=== PATIENT | male | born 1965 | race African-American/Black ===

== ENCOUNTER 2018-05-10 07:55 | Inpatient (IN) ==
[2018-05-10] MEDS ORDERED: ASPIRIN PO ONE (08:02)
[2018-05-10] MEDS ORDERED: ASPIRIN PR ONE (08:02)
[2018-05-10] MEDS ORDERED: ZOFRAN IV ONE (08:11)
[2018-05-10] MEDS ORDERED: ZOFRAN ONE (08:11)
--- NOTE | 2018-05-10 08:16 | PROVIDER DOCUMENTATION ---
HPI-Chest Pain - General Chief Complaint: Shortness of Breath Stated Complaint: dyspnea Time Seen by Provider: 05/10/18 08:02 Source: patient Allergies/Adverse Reactions: Patient Allergies Allergy/AdvReac Type Severity Reaction Status Date / Time No Known Allergies Allergy Verified 04/03/18 10:32 Home Medications: Home Medication List Medication Instructions Recorded Confirmed Last Taken Type Amlodipine Besylate [Norvasc] 5 mg PO DAILY #30 tab 03/11/18 05/10/18 Unknown Rx Diclofenac Sodium 1 tab PO DAILY 04/03/18 05/10/18 Unknown History Hydrocodone Bit/Acetaminophen 10 mg PO BID PRN 04/03/18 05/10/18 Unknown History [Hydrocodon-Acetaminophn 10-325] Lisinopril/Hydrochlorothiazide 20 mg PO DAILY 04/03/18 05/10/18 Unknown History [Lisinopril-Hctz 20-12.5 mg Tab] - History of Present Illness-CP Location: reports: substernal Chest Pain Radiation: reports: no radiation Quality of Pain: reports: tightness Onset/Duration: last night Timing: still present Context/Activities at Onset: reports: other (patient belived he ate bad food that made him sick) Associated Symptoms: reports: shortness of breath, weakness Similar Symptoms Previously?: No Recently Seen Here or By Another Healthcare Provider: No Review of Systems - Adult - REVIEW OF SYSTEMS - ADULT Constitutional: reports: see HPI Eyes: reports: no symptoms reported Ears, Nose, Mouth & Throat: reports: no symptoms reported Cardiovascular: reports: see HPI Respiratory: reports: shortness of breath Gastrointestinal: reports: nausea, vomiting Genitourinary: reports: no symptoms reported Musculoskeletal: reports: no symptoms reported Integumentary: reports: no symptoms reported Neurological: reports: no symptoms reported Psychiatric: reports: no symptoms reported Endocrine: reports: no symptoms reported Hematologic/Lymphatic: reports: no symptoms reported Allergic/Immunologic: reports: see HPI Past History - Adult - PAST MEDICAL HISTORY-ADULT Review of Records: reports: Nursing Assessment Review, Medications Reviewed Major Childhood Illnesses: reports: denies history Cardiovascular: reports: HTN Respiratory: reports: denies history Gastrointestinal: reports: hepatitis, liver disease Obstetrical/Gynecological: reports: denies history Genitourinary: reports: denies history Musculoskeletal: reports: denies history Neurological: reports: denies history Endocrine/Immune: reports: denies history Other Conditions: reports: denies history - PRIOR SURGERIES/PROCEDURES Surgical/Procedure History: reports: none - IMMUNIZATION STATUS Childhood Immunizations: See Nurse Assessment Flu Vaccine: See Nurse Assessment - FAMILY HISTORY Family History: reviewed, not pertinent Physical Exam-General - PHYSICAL EXAM-ADULT Initial Vital Signs Reviewed: Yes - CONSTITUTIONAL General Appearance: moderate distress - EYES Eyes: PERRL/EOMI - HEAD, EARS, NOSE, MOUTH & THROAT HENMT: normocephalic/atraumatic - NECK Neck: non-tender - RESPIRATORY Respiratory: lungs clear - CARDIOVASCULAR Cardiovascular: no edema, tachycardia - GASTROINTESTINAL (ABDOMEN) Abdominal Exam: non tender - LYMPHATIC Lymphatic: no adenopathy - MUSCULOSKELETAL Back Exam: no CVA tenderness, no vertebral tenderness Extremity: non-tender - SKIN Integumentary: warm/dry - NEUROLOGIC 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 - PSYCHIATRIC Psych/Mental Status: normal mood/affect Progress - PLAN OF CARE/RESULTS Result Diagrams: 05/10/18 08:15 05/10/18 08:15 - EKG 1 Time of EKG reading by physician:: 08:05 EKG Read and Signed by:: Marion Lowry EKG Interpretation (*Must complete 3 of following elements*): Abnormal Rate: 80 Rhythm: sinus rhythm with marked sinus arrhythmia [place]: normal QRS: normal MO Interval: normal ST Wave: non-specific ST changes Comments: abnormal ECG, prolonged QTC 2 Time of EKG reading by physician:: 08:17 EKG Read and Signed by:: Marion Lowry EKG Interpretation (*Must complete 3 of following elements*): Abnormal Rate: 66 Rhythm: normal sinus rhythm [place]: normal QRS: LVH MO Interval: normal ST Wave: normal Comments: prolonged QT 3 Time of EKG reading by physician:: 11:12 EKG Read and Signed by:: Marion Lowry EKG Interpretation (*Must complete 3 of following elements*): Abnormal Rate: 61 Rhythm: normal sinus rhythm QRS: LVH MO Interval: normal Comments: ST & T wave abnormality, consider anterior ischemia; prolonged QT - ULTRASOUND (By Radiology) 1 Impression: See EMR Report (US GB < RUQ (LIMITED) - 05/10/2018 INDICATION: Abd pain, Cholelithiasis TECHNIQUE: COMPARISON: CT from earlier today FINDINGS : There are several gallstones in the gallbladder. No gallbladder distention or wall thickening. There is significant fatty change of the liver. No liver masses. Common bile duct measures 6 mm. The pancreas and right kidney are normal. Aorta, IVC, and main portal vein are patent. IMPRESSION: Cholelithiasis. Severe hepatic steatosis.) Departure - Departure Date of Disposition Decision: 05/10/18 Time of Disposition Decision: 15:00 DIAGNOSIS: Cholelithiasis Disposition: ADMITTED INPATIENT 09 Certified Medical Emergency: Emergent Condition: Stable - Critical Care Note This patient required my direct & personal management of CC.: No Attestation - Physician/ KAIN Attestation Patient care was provided by Advanced Practice Provider:: No The physician spent face to face time with patient:: Yes Advanced Practice Provider documentation review:: Supervising physician onsite and consulted in the evaluation and care of this patient. The physician did have a face to face encounter with the patient.
[2018-05-10 08:24] LABS: BASO# 0.01 X1000 (0.0-0.2); BASO% 0.3 % (0.0-0.8); EOS# 0.01 X1000 (0.0-0.7); EOS% 0.3 % (0.0-10.0); HEMATOCRIT 42.6 % (42.0-52.0); IMM GRAN# 0.01 X1000 (0.0-0.04); IMM GRAN% 0.3 % (0.0-0.5); LYMPH# 1.49 X1000 (1.2-3.4); LYMPH% 41.9 % (20.5-51.1); MCH 32.9 PG (27-31); MCHC 35.2 g/dL (33-37); MCV 93.4 FL (81-99); MONO# 0.38 X1000 (0.11-0.59); MONO% 10.7 % (1.7-9.3); MPV 10.1 FL (7.4-10.4); NEUT# 1.66 X1000 (1.4-6.5); NEUT% 46.5 % (42.2-75.2); PLT 167 X1000 (130-400); RBC 4.56 XMIL (4.7-6.1); RDW 13.1 % (11.5-14.5); WBC 3.56 X1000 (4.8-10.8)
[2018-05-10 08:40] LABS: INR 1.02; PROTIME 13.9 Seconds (11.0-16.0)
[2018-05-10 08:41] LABS: PTT 27.8 Seconds (22.3-41.8)
--- NOTE | 2018-05-10 08:49 | Diag Imaging Result Doc PS360 ---
EXAM: CHEST-2 VIEWS HISTORY: dyspnea TECHNIQUE: Chest two views COMPARISON: 03/24/2018 FINDINGS: The lungs are well expanded. The heart is not enlarged. The vessels are not distended. There are no infiltrates. No pleural effusions. IMPRESSION: No acute abnormality. Electronically signed by Shaan Metz 05/10/2018 8:46 AM
[2018-05-10 08:55] LABS: AGAP 20; ALBUMIN 4.3 g/dL (3.5-5.0); ALKALINE PHOSPHATASE 123 U/L (32-122); BUN 7 mg/dL (8-22); CHLORIDE 96 mmol/L (98-107); COSMO 280; CREATININE 0.8 mg/dL (0.7-1.2); ESTIMATED GFR > 60; GLUCOSE 152 mg/dL (70-104); GOT 223 U/L (10-34); GPT 126 U/L (10-44); POTASSIUM 3.9 mmol/L (3.5-5.1); SODIUM 140 mmol/L (136-145); TCO2 24 mmol/L (25-35); TOTAL PROTEIN 9.2 g/dL (6.3-8.3)
[2018-05-10] MEDS ORDERED: REGLAN IV ONE (08:59)
[2018-05-10] MEDS ORDERED: MORPHINE IV ONE (08:59)
[2018-05-10 09:00] LABS: CK PROFILE 2841 U/L (24-204)
[2018-05-10] MEDS ORDERED: PROTONIX IV ONE (09:00)
[2018-05-10] MEDS ORDERED: SODIUM CHLORIDE 0.9% INJ ONE (09:00)
[2018-05-10 09:22] LABS: CK INDEX 0.6 (0.0-2.5); CK-MB 16.72 ng/mL (0.0-5.0)
--- NOTE | 2018-05-10 10:42 | Diag Imaging Result Doc PS360 ---
EXAM: CT ABDOMEN/PELVIS W/O CONTRAST HISTORY: vomiting, bialteral flank pain TECHNIQUE: CT abdomen and pelvis without contrast COMPARISON: 03/13/2018 FINDINGS: There are several calcified stones within the gallbladder. No adjacent inflammation. There is fatty infiltration of the liver. No focal hepatic abnormality identified on this noncontrasted study. Normal spleen, pancreas, and adrenal glands. No renal stones. No hydronephrosis. Prominent atherosclerosis. No aortic aneurysm. No bowel obstruction. No ascites. The urinary bladder is moderately distended and is normal. The prostate measures 4.9 cm in transverse diameter. There are prominent degenerative changes in the lower lumbar spine. IMPRESSION: No interval change from the prior recent study. This exam was performed using automated exposure control, adjustment of mA or kV according to patient size, and/or use of iterative reconstruction technique. Electronically signed by Shaan Metz 05/10/2018 10:40 AM
--- NOTE | 2018-05-10 10:49 | EKG Report ---
Test Performed on : 05/10/2018 08:17:54 AM Test Reason : dyspnea Blood Pressure : / mmHG Vent. Rate : 066 BPM Atrial Rate : 066 BPM P-R Int : 156 ms QRS Dur : 092 ms QT Int : 464 ms P-R-T Axes : 051 000 009 degrees QTc Int : 486 ms Normal sinus rhythm. Minimal voltage criteria for LVH, may be normal variant Prolonged QT Abnormal ECG When compared with ECG of 10-MAY-2018 08:05, (Unconfirmed) No significant change was found Unconfirmed Result
[2018-05-10] MEDS ORDERED: ASPIRIN ONE (10:58)
[2018-05-10] MEDS: NS 1,000 ML IV ONE ×2 (11:00→12:55)
[2018-05-10] MEDS ORDERED: APRESOLINE IV PRN (11:41)
[2018-05-10] MEDS ORDERED: ZOFRAN IV PRN (11:41)
[2018-05-10 11:46] LABS: CK INDEX 0.6 (0.0-2.5); CK-MB 12.61 ng/mL (0.0-5.0)
[2018-05-10] MEDS ORDERED: KEFZOL 2 GM/D5W 2 GM/50 ML IVPB IV ONE (12:15)
--- NOTE | 2018-05-10 13:05 | Diag Imaging Result Doc PS360 ---
US GB < RUQ (LIMITED) - 05/10/2018 INDICATION: Abd pain, Cholelithiasis TECHNIQUE: COMPARISON: CT from earlier today FINDINGS: There are several gallstones in the gallbladder. No gallbladder distention or wall thickening. There is significant fatty change of the liver. No liver masses. Common bile duct measures 6 mm. The pancreas and right kidney are normal. Aorta, IVC, and main portal vein are patent. IMPRESSION: Cholelithiasis. Severe hepatic steatosis. Electronically signed by Mitch Swanson 05/10/2018 1:02 PM
--- NOTE | 2018-05-10 15:22 | EKG Report ---
Test Performed on : 05/10/2018 11:12:12 AM Test Reason : #2 Blood Pressure : / mmHG Vent. Rate : 061 BPM Atrial Rate : 061 BPM P-R Int : 148 ms QRS Dur : 090 ms QT Int : 500 ms P-R-T Axes : 034 -11 -13 degrees QTc Int : 503 ms Normal sinus rhythm. Minimal voltage criteria for LVH, may be normal variant ST & T wave abnormality, consider anterior ischemia Prolonged QT Abnormal ECG When compared with ECG of 10-MAY-2018 08:17, (Unconfirmed) ST now depressed in Inferior leads Unconfirmed Result
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
[2018-05-10] MEDS: NORCO-10 PO PRN (18:06)
[2018-05-10] MEDS: D5 1/2 NS + KCL 20 MEQ 1,000 ML IV SCH (18:07)
[2018-05-10] MEDS: ZOFRAN IV PRN (21:36)
[2018-05-11] MEDS: D5 1/2 NS + KCL 20 MEQ 1,000 ML IV SCH ×2 (08:31→20:12)
[2018-05-11] MEDS: NORCO-10 PO PRN ×4 (08:54→20:12)
[2018-05-11 09:41] LABS: UR AMPHETAMINES QUAL NONE DETECTED (NONE DETECT); UR BARBITUATES QUAL NONE DETECTED (NONE DETECT); UR BENZODIAZEPIN QUAL NONE DETECTED (NONE DETECT); UR CANNABINOIDS QUAL PRESUMPTIVE POSITIVE (NONE DETECT); UR COCAINE QUAL PRESUMPTIVE POSITIVE (NONE DETECT); UR METHADONE QUAL NONE DETECTED (NONE DETECT); UR OPIATES QUAL PRESUMPTIVE POSITIVE (NONE DETECT); UR OXYCODONE QUAL NONE DETECTED (NONE DETECT); UR PCP QUAL NONE DETECTED (NONE DETECT)
[2018-05-11] MEDS ORDERED: SODIUM CHLORIDE 0.9% ONE (10:45)
[2018-05-11] MEDS ORDERED: DIPRIVAN 1% ONE (10:45)
[2018-05-11] MEDS ORDERED: SENSORCAINE 0.5%-EPI 1:200,000 ONE (10:45)
[2018-05-11] MEDS ORDERED: LR 1,000 ML ONE (10:45)
[2018-05-11] MEDS ORDERED: XYLOCAINE-MPF 2% ONE (10:45)
[2018-05-11] MEDS ORDERED: VERSED ONE (10:46)
[2018-05-11] MEDS ORDERED: SODIUM CHLORIDE 0.9% 10 ML ONE (10:47)
[2018-05-11] MEDS ORDERED: NORCURON ONE (10:47)
[2018-05-11] MEDS ORDERED: QUELICIN (DOSE) ONE (10:47)
[2018-05-11] MEDS ORDERED: FENTANYL ONE (10:49)
[2018-05-11] MEDS ORDERED: KEFZOL 1 GM/D5W 1 GM/50 ML IVPB ONE (11:12)
[2018-05-11] MEDS ORDERED: DECADRON ONE (11:29)
[2018-05-11] MEDS ORDERED: ROBINUL ONE ×2 (11:29→11:51)
[2018-05-11] MEDS ORDERED: ZOFRAN ONE (11:29)
[2018-05-11] MEDS ORDERED: NEOSTIGMINE ONE (11:51)
[2018-05-11] MEDS: DILAUDID ONE ×2 (12:22→12:25)
--- NOTE | 2018-05-11 12:34 | Diag Imaging Result Doc PS360 ---
OPERATIVE CHOLANGIOGRAM - 05/11/2018 INDICATION: CHOLECYSTITIS TECHNIQUE: The exam was performed by the patient's surgeon. One image was submitted. Total fluoroscopy time was 10 seconds. COMPARISON: None FINDINGS: Contrast was infused into the cystic duct. This outlines a normal common bile duct. There is good passage of contrast into the duodenum. No strictures or filling defect. IMPRESSION: No complication. Electronically signed by Mitch Swanson 05/11/2018 12:32 PM
--- NOTE | 2018-05-11 12:38 | OPERATIVE NOTE ---
PROCEDURE DATE: 05/11/2018 PREOPERATIVE DIAGNOSIS: Chronic cholecystitis with cholelithiasis. POSTOPERATIVE DIAGNOSES: 1. Chronic cholecystitis with cholelithiasis. 2. Nodular liver. PRINCIPAL PROCEDURES PERFORMED: 1. Laparoscopic cholecystectomy with intraoperative cholangiogram. 2. Core needle biopsy of right lobe of the liver. SURGEON: Saumya Lane MD. ANESTHESIA: General in addition to local anesthetic. ESTIMATED BLOOD LOSS: 25 mL. DRAINS: None. INDICATIONS: Mr. Harvey Vazquez is a 52-year-old, black male who has a history of alcohol abuse and drug abuse. He presented to our emergency department with nausea. Part of his evaluation was a CT scan of his abdomen and pelvis which suggested cholelithiasis. It was felt that his gallstones could be the cause of his symptoms. He was transferred from [facility] Emergency Department to [facility] for further care. FINDINGS: His liver was nodular and he may have early cirrhosis. We did a core needle biopsy of the right lobe of the liver. His gallbladder was floppy, chronically inflamed, and had at least several small black stones within it. We did do an intraoperative cholangiogram which showed free flow of the dye into the duodenum without evidence of extrahepatic stones or obstruction. There was no abnormal dilatation of the extrahepatic bile ducts. We noted no other intra-abdominal pathology and we felt we did the operation safely. DESCRIPTION OF PROCEDURE: The patient was brought to the operating room, placed supine, received general anesthesia, and was intubated. His abdomen was prepped and draped within a sterile field. We made a small incision below the umbilicus using a 15 blade scalpel. A Veress needle was introduced through this incision into the abdomen. Pneumoperitoneum was established. The Veress needle was removed and we placed an 11 mm trocar through this incision into the abdomen. The camera was placed through this port and the abdomen was explored for injury. There was none. Three other trocars were placed along the right costal margin under direct vision of the camera. We placed an 11 mm trocar just to the right of the midline and two 5 mm trocars in our midclavicular and anterior axillary lines. Through our most lateral port, the gallbladder was grasped and retracted superiorly, along with the right lobe of the liver. Another grasper was used to grab the body of the gallbladder and the triangle of [place] was bluntly dissected. We identified the cystic artery initially. We placed a clip distally and two proximally. It was divided using hook scissors. The cystic duct was dissected along its length. I placed a clip at the cystic duct-gallbladder junction. I made a small incision in the cystic duct using hook scissors and a Taut intraoperative cholangiogram catheter was used to perform the cholangiogram with the findings as above. Once the cholangiogram was completed, I removed the catheter and two clips were placed proximally on the cystic duct. We divided the cystic duct between clips using hook scissors. The spatula cautery was used to remove the gallbladder from the liver bed. There was no spillage of stones or bile during this procedure. I removed the gallbladder through our umbilical incision. I placed the trocar back through this incision and the area of operation was thoroughly inspected, irrigated, and the irrigation was removed with suction. There was no evidence of ongoing bleeding or bile leak, and no drains were left. I then made a small incision in the right upper quadrant. I placed a core needle biopsy device into the abdomen under direct vision of the camera and took a core needle biopsy of the right lobe of the liver. The spatula cautery was used to control bleeding from our biopsy site. All trocars were removed under direct vision of the camera. The pneumoperitoneum was allowed to dissipate. I used a [id number] 2-0 Vicryl stitch to reapproximate the fascia below the umbilicus. All skin was closed with 4-0 Monocryl subcuticular stitches. Steri-Strips were applied. He tolerated the procedure well with plans for him to go the recovery room and then be readmitted to the floor. cc: Saumya Lane MD
[2018-05-11] MEDS ORDERED: APRESOLINE ONE (12:46)
[2018-05-11] MEDS: NORVASC PO SCH (13:55)
[2018-05-11] MEDS: PRINIVIL PO SCH (13:56)
[2018-05-12] MEDS: ZOFRAN IV PRN (00:53)
[2018-05-12] MEDS: NORCO-10 PO PRN ×2 (02:47→08:47)
[2018-05-12] MEDS: D5 1/2 NS + KCL 20 MEQ 1,000 ML IV SCH (08:46)
[2018-05-12] MEDS: PRINIVIL PO SCH (08:47)
[2018-05-12] MEDS: NORVASC PO SCH (08:47)
[2018-05-12 11:34] VITALS: BP 167/87
--- NOTE | 2018-05-12 22:22 | DISCHARGE SUMMARY ---
ADMISSION DATE: 05/10/2018 DISCHARGE DATE: 05/12/2018 ADMITTING DIAGNOSES: 1. Nausea and vomiting. 2. Gallstones. 3. Fatty liver. DISCHARGE DIAGNOSES: 1. Nausea and vomiting. 2. Gallstones. 3. Fatty liver. PRINCIPAL PROCEDURE: 1. Laparoscopic cholecystectomy with intraoperative cholangiogram. 2. Core needle biopsy of right lobe of the liver, 05/11/2018. DISCHARGE DIET: Regular. DISCHARGE DISPOSITION: He will return to our outpatient office in 7 to 10 days. DISCHARGE DISABILITY: Full. DISCHARGE MEDICATION: He was given [place] 10 mg, #10 of these, no refill. HOSPITAL COURSE: Mr. Harvey Vazquez is a 52-year-old black male who has a history of alcohol abuse and drug abuse. He has also been in shelter. He presented to [facility] with symptoms of nausea and was brought to [facility] Emergency Department, where he was evaluated. Part of his evaluation was a CT scan of his abdomen and pelvis, which suggested gallstones and a fatty liver. His gallstones were confirmed by abdominal ultrasound. He was transferred from [facility] to [facility] so that I could evaluate him for surgery. On 05/11/2018, he underwent a laparoscopic cholecystectomy with intraoperative cholangiogram. He did have stones within his gallbladder. His cholangiogram was normal. I thought he had early cirrhosis of his liver and therefore, did a core needle biopsy of the right lobe of the liver to see what his pathology showed. Otherwise, intraabdominally he was within normal limits. On postoperative day 1, he was tolerating a diet. All his trocar sites were intact. His abdomen was soft. He was independent in his room, and we felt it was safe to discharge him home under the care of his family with follow-up in my outpatient office in 7 to 10 days. cc: MD Juan Weaver MD
== END 2018-05-12 12:42 | disposition home or self-care (01) | DRG 419 ==
LOC: P.ED 07:55 → EDIPHOLD 12:27 → 4N 15:59
PROVIDERS: ADMIT Surgery; ATTEND Surgery
CPT/HCPCS: 71020; 71046; 74176; 74300; 76705; 80053; 80101; 80301; 80307; 80320; 80324; 80345; 80346; 80353; 80358; 80361; 80365; 82055; 82550; 82553; 83605; 83690; 83880; 83992; 84484; 85025; 85610; 85730; 88304; 88307; 88313; 93005; 94761; 94799; 96361; 96365; 96366; 96375; 96376; 99285; A9270; C1751; C9113; G0431; G0434; G0479; G0480; G6040; J0330; J0360; J0690; J1100; J1170; J2250; J2270; J2405; J2765; J3010; J3480; J7030; J7120; Q9966; Q9967; S0164

== ENCOUNTER 2019-02-26 21:07 | Inpatient (IN) ==
[2019-02-26] MEDS ORDERED: ASPIRIN PO ONE (21:18)
--- NOTE | 2019-02-26 21:54 | Diag Imaging Result Doc PS360 ---
CHEST-2 VIEWS - 02/26/2019 INDICATION: CP COMPARISON: 05/10/2018 FINDINGS: The lungs are normally expanded and clear. Heart size and mediastinal contours are normal. No pneumothorax or pleural effusion. IMPRESSION: Negative exam. Electronically signed by Mitch Swanson 02/26/2019 9:52 PM
--- NOTE | 2019-02-26 21:57 | EKG Report ---
Test Performed on : 02/26/2019 9:22:17 PM Test Reason : CP Blood Pressure : / mmHG Vent. Rate : 101 BPM Atrial Rate : 101 BPM P-R Int : 154 ms QRS Dur : 090 ms QT Int : 340 ms P-R-T Axes : 059 007 007 degrees QTc Int : 440 ms Sinus tachycardia. Possible Left atrial enlargement Borderline ECG When compared with ECG of 08-JUN-2018 08:06, No significant change was found Unconfirmed Result
[2019-02-26 22:05] LABS: BASO# 0.04 X1000 (0.0-0.2); BASO% 0.8 % (0.0-0.8); EOS# 0.29 X1000 (0.0-0.7); EOS% 5.6 % (0.0-10.0); HEMATOCRIT 41.8 % (42.0-52.0); HEMOGLOBIN 14.4 g/dL (14.0-18.0); IMM GRAN# 0.02 X1000 (0.0-0.04); IMM GRAN% 0.4 % (0.0-0.5); LYMPH# 2.74 X1000 (1.2-3.4); LYMPH% 53.2 % (20.5-51.1); MCH 31.4 PG (27-31); MCHC 34.4 g/dL (33-37); MCV 91.3 FL (81-99); MONO# 0.56 X1000 (0.11-0.59); MONO% 10.9 % (1.7-9.3); MPV 9.8 FL (7.4-10.4); NEUT% 29.1 % (42.2-75.2); PLT 213 X1000 (130-400); RBC 4.58 XMIL (4.7-6.1); RDW 12.5 % (11.5-14.5); WBC 5.15 X1000 (4.8-10.8)
[2019-02-26 22:09] LABS: INFLUENZA A NEGATIVE (NEGATIVE); INFLUENZA B NEGATIVE (NEGATIVE)
[2019-02-26 22:12] LABS: UR AMPHETAMINES QUAL PRESUMPTIVE POSITIVE (NONE DETECT); UR BARBITUATES QUAL NONE DETECTED (NONE DETECT); UR BENZODIAZEPIN QUAL NONE DETECTED (NONE DETECT); UR CANNABINOIDS QUAL PRESUMPTIVE POSITIVE (NONE DETECT); UR COCAINE QUAL NONE DETECTED (NONE DETECT); UR METHADONE QUAL NONE DETECTED (NONE DETECT); UR METHAMPHETAMINE QUAL NONE DETECTED (NONE DETECT); UR OPIATES QUAL NONE DETECTED (NONE DETECT); UR OXYCODONE QUAL NONE DETECTED (NONE DETECT); UR PCP QUAL NONE DETECTED (NONE DETECT); UR PROPOXYPHENE QUAL NONE DETECTED (NONE DETECT); UR TCA QUAL NONE DETECTED (NONE DETECT)
[2019-02-26 22:20] LABS: AGAP 15; ALBUMIN 4.1 g/dL (3.5-5.0); ALKALINE PHOSPHATASE 101 U/L (32-122); BUN 17 mg/dL (8-22); CALCIUM 9.9 mg/dL (8.8-10.2); CHLORIDE 95 mmol/L (98-107); COSMO 267; CREATININE 1.1 mg/dL (0.7-1.2); ESTIMATED GFR > 60; GLUCOSE 147 mg/dL (70-104); GOT 102 U/L (10-34); GPT 66 U/L (10-44); POTASSIUM 4.1 mmol/L (3.5-5.1); SODIUM 131 mmol/L (136-145); TCO2 21 mmol/L (25-35); TOTAL PROTEIN 8.1 g/dL (6.3-8.3)
[2019-02-26 22:43] LABS: INR 0.98; PROTIME 13.5 Seconds (11.0-16.0)
[2019-02-26 22:44] LABS: PTT 30.3 Seconds (22.3-41.8)
[2019-02-26] MEDS ORDERED: NS 1,000 ML IV ONE (23:56)
[2019-02-26] MEDS ORDERED: ZOFRAN IV PRN (23:56)
[2019-02-26] MEDS ORDERED: MORPHINE IV PRN (23:56)
--- NOTE | 2019-02-26 23:56 | PROVIDER DOCUMENTATION ---
This chart was entered by Vashti Harper Scribe, acting as scribe for Nan Borden CRNP. HPI-Chest Pain - General Chief Complaint: Chest Pain Stated Complaint: SOB Time Seen by Provider: 02/26/19 21:17 Source: patient Allergies/Adverse Reactions: Patient Allergies Allergy/AdvReac Type Severity Reaction Status Date / Time No Known Allergies Allergy Verified 07/07/18 12:13 Home Medications: Home Medication List Medication Instructions Recorded Confirmed Last Taken Type Amlodipine Besylate [Norvasc] 5 mg PO DAILY #30 tab 03/11/18 06/08/18 Unknown Rx Diclofenac Sodium 1 tab PO DAILY 04/03/18 05/10/18 Unknown History Lisinopril/Hydrochlorothiazide 20 mg PO DAILY 04/03/18 06/08/18 06/07/18 History [Lisinopril-Hctz 20-12.5 mg Tab] Hydrocodone/Acetaminophen [[place] 1 each PO Q6H PRN #10 tablet 05/12/18 06/08/18 06/06/18 Rx 10-325 Tablet] Methocarbamol 1 tab PO BID 06/08/18 06/08/18 Unknown History Promethazine [Phenergan] 25 mg PO Q6H PRN PRN #4 tab 06/08/18 Unknown Rx Amlodipine [Norvasc] 5 mg PO DAILY #30 tab 06/10/18 Unknown Rx Ketorolac [Toradol] 10 mg PO Q6H PRN PRN #10 tab 06/10/18 Unknown Rx Metoclopramide [Reglan] 10 mg PO Q6HR PRN #20 tab 06/10/18 Unknown Rx Doxycycline 100 mg PO BID #14 tab 07/07/18 Unknown Rx Ondansetron Odt [Zofran 4 mg Odt] 4 mg PO Q6H PRN PRN #30 tab 07/07/18 Unknown Rx - History of Present Illness-CP Nature of Presenting Problem: pt is a 53yom c/o sore throat, productive cough w/white sputum x 4 days. pt also c/o sharp cp radiating across chest to rt and left sided neck pain. THE NECK PAIN IS WORSE WITH MOVEMENT. pt has no edema, no sob, no fever or chills. pt has hx of drug abuse. pt drinks 2-3 beer/day. HE REPORTS HE TOOK AN ADDERALL TODAY FROM SOMEONE AT HOME. Location: reports: other (left sided) Chest Pain Radiation: reports: other (across chest to rt) Quality of Pain: reports: sharp Severity in ED: mild Onset/Duration: 4 days ago Timing: still present Context/Activities at Onset: reports: none Associated Symptoms: reports: denies symptoms Nitro Today/Relief: no nitro taken today Aspirin Treatment Today: 325 mg x 1, provided by ED Prior Chest Pain/Cardiac Workup: reports: cardiolite scan (> 10 YEARS AGO AT ) Similar Symptoms Previously?: Yes Recently Seen Here or By Another Healthcare Provider: No Review of Systems - Adult - REVIEW OF SYSTEMS - ADULT Constitutional: reports: no symptoms reported. denies: chills, fever, night sweats Eyes: reports: no symptoms reported Ears, Nose, Mouth & Throat: reports: see HPI, throat pain. denies: mouth swelling, hoarseness, throat swelling Cardiovascular: reports: see HPI, chest pain. denies: edema, orthopnea, palpitations Respiratory: reports: see HPI, cough, excessive sputum production. denies: pleurisy, shortness of breath, wheezing Gastrointestinal: reports: no symptoms reported Genitourinary: reports: no symptoms reported Musculoskeletal: reports: no symptoms reported Integumentary: reports: no symptoms reported Neurological: reports: no symptoms reported Psychiatric: reports: no symptoms reported Endocrine: reports: no symptoms reported Hematologic/Lymphatic: reports: no symptoms reported Allergic/Immunologic: reports: no symptoms reported All Other Systems: Reviewed and Negative Past History - Adult - PAST MEDICAL HISTORY-ADULT Review of Records: reports: Nursing Assessment Review, Medications Reviewed, Social history reviewed & non-contributory. Major Childhood Illnesses: reports: denies history Cardiovascular: reports: HTN, hyperlipidemia Respiratory: reports: denies history Gastrointestinal: reports: hepatitis, liver disease Obstetrical/Gynecological: reports: denies history Genitourinary: reports: denies history Musculoskeletal: reports: denies history Neurological: reports: denies history Psychiatric: reports: denies history Endocrine/Immune: reports: Diabetes (pre) Other Conditions: reports: denies history - PRIOR SURGERIES/PROCEDURES Surgical/Procedure History: reports: cholecystectomy - IMMUNIZATION STATUS Childhood Immunizations: See Nurse Assessment Flu Vaccine: See Nurse Assessment - FAMILY HISTORY Family History: reviewed, not pertinent - SOCIAL HISTORY Smoking: cigarettes, less than 1 pack/day Provider spent 3-5 mins advising pt. on dangers of tobacco.: Discussed manners to quit use, and f/u contacts for add'l counseling. Substance Use: none presently/history of abuse, alcohol, marijuana Alcohol Use Frequency: every day Number of drinks per typical drinking period:: 3-4 drinks Physical Exam-General - PHYSICAL EXAM-ADULT Initial Vital Signs Reviewed: Yes - CONSTITUTIONAL General Appearance: appears well, alert, no apparent distress - EYES Eyes: PERRL/EOMI, pink conjunctivae - HEAD, EARS, NOSE, MOUTH & THROAT HENMT: normocephalic/atraumatic, moist mucous membranes, normal ENT inspection - NECK Neck: non-tender, full range of motion, supple, normal inspection - RESPIRATORY Respiratory: chest non-tender, lungs clear, normal breath sounds, no pleuratic chest pain, no respiratory distress, no accessory muscle use. negative: pleural rub, retractions, splinting - CARDIOVASCULAR Cardiovascular: normal peripheral pulses, regular rate, rhythm, no edema, no gallop, no JVD, no murmur. negative: friction rub, irregularly irregular, PMI displaced laterally - CHEST (BREASTS) Chest/Breast: no tenderness - GASTROINTESTINAL (ABDOMEN) Abdominal Exam: normal bowel sounds, non tender, soft - LYMPHATIC Lymphatic: no adenopathy - MUSCULOSKELETAL Back Exam: normal inspection, no CVA tenderness, no vertebral tenderness Extremity: normal range of motion, non-tender, normal inspection Peripheral Pulses: radial (R): 2+, radial (L): 2+ - SKIN Integumentary: normal color, normal turgor, warm/dry - NEUROLOGIC Neurologic: grossly normal, no motor/sensory deficits - PSYCHIATRIC Psych/Mental Status: normal mood/affect, normal thought content, normal thought process, oriented x 3 - HEART Score HEART Score: History: Slightly Suspicious HEART Score: ECG: Normal HEART Score: Age: 45-65 Years HEART Score: Risk Factors for Atherosclerotic Disease: > or = 3 Risk Factors or History of Atherosclerotic Disease HEART Score: Troponin: < or = Normal Limit Total HEART Score:: 3 Progress - PLAN OF CARE/RESULTS Progress/Plan/Lab Results: Vital Signs - 8 hr 02/26/19 21:10 Temperature 99.1 F Pulse Rate 102 H Respiratory Rate 18 Blood Pressure 177/96 O2 Sat by Pulse Oximetry 99 Laboratory Results - last 24 hr 1102/26/19 02/26/19 21:37 21:37 21:43 WBC RBC Hgb Hct MCV MCH MCHC RDW Std Deviation Plt Count MPV Immature Gran % (Auto) Neut % (Auto) Lymph % (Auto) [place] % (Auto) Eos % (Auto) Baso % (Auto) Immature Gran # (Auto) Neut # (Auto) Lymph # (Auto) [place] # (Auto) Eos # (Auto) Baso # (Auto) PT INR PTT (Actin FS) D-Dimer, Quantitative Sodium Potassium Chloride Carbon Dioxide Anion Gap BUN Creatinine Estimated GFR/1.73 m2 BUN/Creatinine Ratio Glucose Calculated Osmolality Calcium Total Bilirubin AST ALT Alkaline Phosphatase Creatine Kinase 177 Troponin T Qrt-Q-Ywqqwzhlsus Pept Total Protein Albumin Globulin Albumin/Globulin Ratio Urine Opiates Screen Ur Oxycodone Screen Urine Methadone Screen U Propoxyphene Qual Ur Barbituates Screen Ur Tricyclics Screen Ur Phencyclidine Scrn Ur Amphetamines Screen U Methamphetamines Scrn U Benzodiazepines Scrn Urine Cocaine Screen U Cannabinoids Screen Influenza A (Rapid) NEGATIVE Influenza B (Rapid) NEGATIVE Group A Strep Rapid NEGATIVE 02/26/19 02/26/19 02/26/19 21:43 21:43 21:43 WBC 5.15 RBC 4.58 L Hgb 14.4 Hct 41.8 L MCV 91.3 MCH 31.4 H MCHC 34.4 RDW Std Deviation 12.5 Plt Count 213 MPV 9.8 Immature Gran % (Auto) 0.4 Neut % (Auto) 29.1 L Lymph % (Auto) 53.2 H [place] % (Auto) 10.9 H Eos % (Auto) 5.6 Baso % (Auto) 0.8 Immature Gran # (Auto) 0.02 Neut # (Auto) 1.50 Lymph # (Auto) 2.74 [place] # (Auto) 0.56 Eos # (Auto) 0.29 Baso # (Auto) 0.04 PT INR PTT (Actin FS) D-Dimer, Quantitative Sodium 131 L Potassium 4.1 Chloride 95 L Carbon Dioxide 21 L Anion Gap 15 BUN 17 Creatinine 1.1 Estimated GFR/1.73 m2 > 60 BUN/Creatinine Ratio 15 Glucose 147 H Calculated Osmolality 267 Calcium 9.9 Total Bilirubin 0.70 AST 102 H ALT 66 H Alkaline Phosphatase 101 Creatine Kinase Troponin T < 0.010 Rxa-B-Dfzcffnzrdp Pept Total Protein 8.1 Albumin 4.1 Globulin 4.0 Albumin/Globulin Ratio 1.0 Urine Opiates Screen Ur Oxycodone Screen Urine Methadone Screen U Propoxyphene Qual Ur Barbituates Screen Ur Tricyclics Screen Ur Phencyclidine Scrn Ur Amphetamines Screen U Methamphetamines Scrn U Benzodiazepines Scrn Urine Cocaine Screen U Cannabinoids Screen Influenza A (Rapid) Influenza B (Rapid) Group A Strep Rapid 02/26/19 02/26/19 02/26/19 21:43 21:43 21:43 WBC RBC Hgb Hct MCV MCH MCHC RDW Std Deviation Plt Count MPV Immature Gran % (Auto) Neut % (Auto) Lymph % (Auto) [place] % (Auto) Eos % (Auto) Baso % (Auto) Immature Gran # (Auto) Neut # (Auto) Lymph # (Auto) [place] # (Auto) Eos # (Auto) Baso # (Auto) PT 13.5 INR 0.98 PTT (Actin FS) 30.3 D-Dimer, Quantitative 1.85 H Sodium Potassium Chloride Carbon Dioxide Anion Gap BUN Creatinine Estimated GFR/1.73 m2 BUN/Creatinine Ratio Glucose Calculated Osmolality Calcium Total Bilirubin AST ALT Alkaline Phosphatase Creatine Kinase Troponin T Pvp-S-Gkdpbfmzlmd Pept 123 Total Protein Albumin Globulin Albumin/Globulin Ratio Urine Opiates Screen Ur Oxycodone Screen Urine Methadone Screen U Propoxyphene Qual Ur Barbituates Screen Ur Tricyclics Screen Ur Phencyclidine Scrn Ur Amphetamines Screen U Methamphetamines Scrn U Benzodiazepines Scrn Urine Cocaine Screen U Cannabinoids Screen Influenza A (Rapid) Influenza B (Rapid) Group A Strep Rapid 02/26/19 21:47 WBC RBC Hgb Hct MCV MCH MCHC RDW Std Deviation Plt Count MPV Immature Gran % (Auto) Neut % (Auto) Lymph % (Auto) [place] % (Auto) Eos % (Auto) Baso % (Auto) Immature Gran # (Auto) Neut # (Auto) Lymph # (Auto) [place] # (Auto) Eos # (Auto) Baso # (Auto) PT INR PTT (Actin FS) D-Dimer, Quantitative Sodium Potassium Chloride Carbon Dioxide Anion Gap BUN Creatinine Estimated GFR/1.73 m2 BUN/Creatinine Ratio Glucose Calculated Osmolality Calcium Total Bilirubin AST ALT Alkaline Phosphatase Creatine Kinase Troponin T Gsv-R-Jlcvyxhkkht Pept Total Protein Albumin Globulin Albumin/Globulin Ratio Urine Opiates Screen NONE DETECTED Ur Oxycodone Screen NONE DETECTED Urine Methadone Screen NONE DETECTED U Propoxyphene Qual NONE DETECTED Ur Barbituates Screen NONE DETECTED Ur Tricyclics Screen NONE DETECTED Ur Phencyclidine Scrn NONE DETECTED Ur Amphetamines Screen PRESUMPTIVE POSITIVE A U Methamphetamines Scrn NONE DETECTED U Benzodiazepines Scrn NONE DETECTED Urine Cocaine Screen NONE DETECTED U Cannabinoids Screen PRESUMPTIVE POSITIVE A Influenza A (Rapid) Influenza B (Rapid) Group A Strep Rapid Orders Category Date Time Status CTA [CT ANGIOGRM PULMONARY ARTERIES] [CT] Stat Exams 02/26/19 22:33 Taken cxr [CHEST-2 VIEWS] [RAD] Stat Exams 02/26/19 21:17 Completed CBC WITH ELECTRONIC DIFF [HEME] Stat Lab 02/26/19 21:43 Completed CK PROFILE [SP CHEM] Stat Lab 02/26/19 21:43 Completed COMPREHENSIVE METABOLIC PANEL [CHEM] Stat Lab 02/26/19 21:43 Completed D-DIMER [COAG] Stat Lab 02/26/19 21:[address] Stat Lab 02/26/19 21:[address] Stat Lab 02/26/19 21:37 Completed PRO B-NATRIURETIC PEPTIDE Stat Lab 02/26/19 21:43 Completed PROTIME WITH INR [COAG] Stat Lab 02/26/19 21:43 Completed PTT [COAG] Stat Lab 02/26/19 21:43 Completed TROPONIN T Stat Lab 02/26/19 21:43 Completed TROPONIN T Stat Lab 02/26/19 23:37 Ordered URINE DRUG SCREEN PL Stat Lab 02/26/19 21:47 Completed Aspirin Med 02/26/19 21:18 Discontinued 325 mg PO NOW ONE EKG [EKG] Stat Ther 02/26/19 21:17 Draft Result Diagrams: 02/26/19 21:43 02/26/19 21:43 - EKG 1 Time of EKG reading by physician:: 21:22 EKG Read and Signed by:: Nato Pride EKG Interpretation (*Must complete 3 of following elements*): Normal Rate: 101 Rhythm: ST [place]: normal QRS: other (POSSIBLE L ATRIAL ENLARGEMENT) [place] Interval: normal ST Wave: normal Prior EKG Comparison: changes noted - XRAY 1 XRAY Study: Chest Impression: Normal, See EMR Report ( CHEST-2 VIEWS - 02/26/2019 INDICATION: CP COMPARISON: 05/10/2018 FINDINGS: The lungs are normally expanded and clear. Heart size and mediastinal contours are normal. No pneumothorax or pleural effusion. IMPRESSION: Negative exam. Electronically signed by Mitch Swanson 02/26/2019 9:52 PM 02/26/192151 Interpreting Physician: Mitch Swanson MD Dictated Date/Time: 02/26/192148 cc: Nan Borden; None,PCP) - CT/MRI 1 CT Study: Angiogram, Thorax Impression: Abnormal (SEVERE CAD. NO AORTIC ANEURYSM OR DISECTION. NO MASS NO ACUTE DISEASE) - CONSULTS/PCP/HOSPITALIST Notification #1 *Consult/PCP/Hospitalist*: DR. HORVATH Time Discussed: 23:55 Consult Disposition: Admit Departure - Departure Date of Disposition Decision: 02/26/19 Time of Disposition Decision: 23:55 DIAGNOSIS: Chest pain, Shortness of breath, Hypertension Disposition: ADMITTED INPATIENT 09 Certified Medical Emergency: Emergent Condition: Stable Referrals and Follow-Ups: None,PCP [Primary Care Provider] - - Critical Care Note This patient required my direct & personal management of CC.: No Attestation - Physician/ KAIN Attestation Patient care was provided by Advanced Practice Provider:: Yes Advanced Practice Provider:: Nan Borden Advanced Practice Provider documentation review:: The Mid-level provider documentation, treatment plan and medical decision making was reviewed by the physician who agrees with all treatment and medical decision making by the P. The physician spent face to face time with patient:: No Advanced Practice Provider documentation review:: Supervising physician onsite and consulted in the evaluation and care of this patient. The physician did not have a face to face encounter with the patient. This chart was documented by the indicated scribe, (Vashti Harper Scribe) and accurately reflects the services I performed and decisions made by me, Nan Borden CRNP, as attested by the provider's signature.
--- NOTE | 2019-02-27 00:36 | ED EKG INTERP ---
This chart was entered by Vashti Harper Scribe, acting as scribe for Nato Pride MD. EKG Interpretation - EKG Time of EKG reading by physician:: 00:07 EKG Read and Signed by:: Nato Pride EKG Interpretation (*Must complete 3 of following elements*): Normal (borderline) Rate: 79 (possible left atrial enlargement ) Rhythm: NSR [place]: normal QRS: normal MD Interval: normal ST Wave: normal Attestation - Physician/ KAIN Attestation Patient care was provided by Advanced Practice Provider:: Yes Advanced Practice Provider:: Nan Borden Advanced Practice Provider documentation review:: The Mid-level provider documentation, treatment plan and medical decision making was reviewed by the physician who agrees with all treatment and medical decision making by the MLP. The physician spent face to face time with patient:: No Advanced Practice Provider documentation review:: Supervising physician onsite and consulted in the evaluation and care of this patient. The physician did not have a face to face encounter with the patient. This chart was documented by the indicated scribe, (Vashti Harper Scribe) and accurately reflects the services I performed and decisions made by me, Nato Pride MD, as attested by the provider's signature.
[2019-02-27] MEDS ORDERED: FLU VACCINE IM ONE (01:36)
[2019-02-27] MEDS ORDERED: PNEUMOVAX 23 IM ONE (01:38)
--- NOTE | 2019-02-27 07:13 | Diag Imaging Result Doc PS360 ---
EXAM: CT ANGIOGRAM PULMONARY ARTERIES - 02/26/2019 HISTORY: ELEVATED D-DIMER, SOB, CP TECHNIQUE: CT angiogram pulmonary arteries with intravenous contrast. Axial, 2-D coronal MIP, and 3-D MIP images are obtained. COMPARISON: None. FINDINGS: Pulmonary artery opacification is suboptimal, and there are artifacts from motion, which may limit the sensitivity of the exam for detecting pulmonary emboli. There are no large or central pulmonary artery filling defects identified. There is no indication of aortic dissection. There is subsegmental atelectasis at the right lower lobe. There is no dense consolidation, pleural effusion, or pneumothorax identified. There are apparent substantial coronary artery calcifications noted. IMPRESSION: Suboptimal opacification of pulmonary arteries, and artifacts from motion, which may limit the sensitivity for detecting pulmonary emboli. There are no pulmonary emboli identified. There is no indication of aortic dissection. Subsegmental atelectasis at right lower lobe. No dense consolidation. Apparent substantial coronary artery calcifications noted. The mail messenger contractor radiologist provided preliminary results at 11:38 PM on 02/26/2019. Electronically signed by Mendez Matthew 02/27/2019 7:11 AM
[2019-02-27] MEDS ORDERED: PRINZIDE 20/12.5MG PO SCH (09:00)
[2019-02-27 09:55] LABS: HEMOGLOBIN A1C 6.5 % (4.8-6.0)
[2019-02-27 10:07] LABS: AGAP 11; ALKALINE PHOSPHATASE 75 U/L (32-122); BUN 13 mg/dL (8-22); CALCIUM 7.4 mg/dL (8.8-10.2); CHLORIDE 107 mmol/L (98-107); CK PROFILE 118 U/L (24-204); COSMO 276; CREATININE 0.7 mg/dL (0.7-1.2); ESTIMATED GFR > 60; GLUCOSE 103 mg/dL (70-104); GOT 77 U/L (10-34); GPT 51 U/L (10-44); POTASSIUM 3.1 mmol/L (3.5-5.1); SODIUM 138 mmol/L (136-145); TCO2 21 mmol/L (25-35); TOTAL PROTEIN 6.2 g/dL (6.3-8.3)
[2019-02-27 10:12] LABS: FREE T4 1.19 ng/dL (0.93-1.70); TSH 1.25 uIUmL (0.27-4.20)
[2019-02-27] MEDS ORDERED: MAGNESIUM SULFATE 4 GM/S.W.I. 4 GM/100 ML IVPB IV ONE (10:14)
[2019-02-27] MEDS ORDERED: KLOR-CON PO ONE ×2 (10:14→16:45)
[2019-02-27] MEDS ORDERED: ROBAXIN PO PRN (10:35)
[2019-02-27 10:37] LABS: BASO# 0.03 X1000 (0.0-0.2); BASO% 0.9 % (0.0-0.8); EOS# 0.28 X1000 (0.0-0.7); EOS% 8.5 % (0.0-10.0); HEMATOCRIT 38.6 % (42.0-52.0); IMM GRAN# 0.01 X1000 (0.0-0.04); IMM GRAN% 0.3 % (0.0-0.5); LYMPH# 1.62 X1000 (1.2-3.4); LYMPH% 49.2 % (20.5-51.1); MCHC 33.7 g/dL (33-37); MCV 92.1 FL (81-99); MONO# 0.46 X1000 (0.11-0.59); MPV 9.6 FL (7.4-10.4); NEUT# 0.89 X1000 (1.4-6.5); NEUT% 27.1 % (42.2-75.2); PLT 202 X1000 (130-400); RBC 4.19 XMIL (4.7-6.1); RDW 12.4 % (11.5-14.5); WBC 3.29 X1000 (4.8-10.8)
[2019-02-27] MEDS ORDERED: HUMULIN R SUBQ SCH (11:00)
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
--- NOTE | 2019-02-27 14:40 | EKG Report ---
Test Performed on : 02/27/2019 00:06:27 AM Test Reason : ER Blood Pressure : / mmHG Vent. Rate : 079 BPM Atrial Rate : 079 BPM P-R Int : 154 ms QRS Dur : 092 ms QT Int : 400 ms P-R-T Axes : 059 013 028 degrees QTc Int : 458 ms Normal sinus rhythm. Possible Left atrial enlargement Borderline ECG When compared with ECG of 26-FEB-2019 21:22, (Unconfirmed) No significant change was found Confirmed by Mandeep Sharma MD ([id number]) on 03/17/2019 7:39:37 AM
--- NOTE | 2019-02-27 15:12 | Vascular Study Report ---
EXAM: Carotid Ultrasound - 02/27/2019 HISTORY: dizziness; neck pain TECHNIQUE: Carotid flow studies COMPARISON: None. FINDINGS: There is mild atherosclerotic plaquing at the carotid bulb and proximal internal carotid on the right. Maximum systolic velocity at the right internal carotid is 50 cm/s, and maximum diastolic velocity is 20 cm/s. The right internal to common carotid systolic velocity ratio is 0.7. The flow velocities and ratio are consistent with 0-39% stenosis at the right internal carotid. The right vertebral demonstrates antegrade flow. There is mild atherosclerotic plaquing at the carotid bulb and proximal internal carotid on the left. Maximum systolic velocity at the left internal carotid is 56 cm/s, and maximum diastolic velocity is 26 cm/s. The left internal to common carotid systolic velocity ratio is 0.6. The flow velocities and ratio are consistent with 0-39% stenosis at the left internal carotid. The left vertebral demonstrates antegrade flow. IMPRESSION: 0-39% stenosis at right internal carotid. 0-39% stenosis at left internal carotid. Electronically signed by Mendez Matthew 02/27/2019 3:09 PM
[2019-02-27] MEDS: HYDROCHLOROTHIAZIDE PO SCH (16:16)
[2019-02-27] MEDS: PRINIVIL PO SCH (16:16)
[2019-02-27] MEDS: LOVENOX SUBQ SCH (16:17)
[2019-02-27] MEDS: ASPIRIN PO SCH (16:17)
[2019-02-27] MEDS: HUMULIN R (PARKWAY) SUBQ SCH ×3 (16:52→21:45)
[2019-02-27] MEDS ORDERED: TRICOR PO SCH (21:00)
[2019-02-27] MEDS: NORCO-10 PO PRN (21:16)
--- NOTE | 2019-02-27 22:36 | ECHO REPORT ---
ORDER DATE: 02/27/2019 MEASUREMENTS: Left ventricular end-diastolic diameter 4.6, septal thickness 1.4, posterior wall thickness 1.4, left ventricular internal diameter end systole 3.4, aortic root 3.1, left atrium 3.4. SUMMARY: 1. Technically difficult study due to limited acoustic window quality. 2. Aortic valve is trileaflet and opens normally on 2-dimensional images. The peak gradient across the aortic valve is less than 10 mmHg. Mitral and tricuspid valves are without evidence of structural abnormality while pulmonic valve is not well demonstrated. There is mild mitral regurgitation. Aortic root is normal size. 3. Moderate concentric left hypertrophy. Mild mitral regurgitation. Aortic root is normal in size. 4. Normal left ventricular chamber size with moderate concentric left hypertrophy is demonstrated. Estimated left ejection fraction is approximately 40% to 45% in the setting of mild global hypokinesis. Doppler suggests grade 1 left ventricular diastolic dysfunction. Left atrium, right atrium and right ventricle are normal in size with grossly preserved right ventricular systolic function. 5. No pericardial effusion. 6. Appearance of inferior vena cava suggests normal central venous pressure. CONCLUSIONS: 1. Technically difficult study. 2. Mild mitral regurgitation. 3. Moderate concentric left hypertrophy with estimated left ejection fraction of 40 to 45 percent. 4. Grade 1 left ventricular diastolic dysfunction suggested. cc: MD Aidee Briones CRNP
[2019-02-27 22:43] LABS: C REACTIVE PROT QUANT 0.31 mg/L (0.00-5.00)
[2019-02-28] MEDS: NORCO-10 PO PRN (05:09)
--- NOTE | 2019-02-28 06:00 | HISTORY AND PHYSICAL ---
SUBJECTIVE: The patient is seen and examined by myself. Full note dictated and discussed with the nurse practitioner. The patient presented to the hospital with chest pain and shortness of breath. We are going to admit him to the hospital to rule out TN, check a stress test today. We will replace his electrolytes and we will follow. cc: Donovan Hartman MD
[2019-02-28] MEDS: HUMULIN R (PARKWAY) SUBQ SCH ×3 (06:12→17:13)
[2019-02-28 06:25] LABS: BASO# 0.05 X1000 (0.0-0.2); BASO% 0.9 % (0.0-0.8); EOS# 0.21 X1000 (0.0-0.7); EOS% 3.9 % (0.0-10.0); HEMATOCRIT 43.4 % (42.0-52.0); HEMOGLOBIN 14.8 g/dL (14.0-18.0); IMM GRAN# 0.01 X1000 (0.0-0.04); IMM GRAN% 0.2 % (0.0-0.5); LYMPH# 1.74 X1000 (1.2-3.4); MCH 31.2 PG (27-31); MCHC 34.1 g/dL (33-37); MCV 91.4 FL (81-99); MONO# 0.82 X1000 (0.11-0.59); MONO% 15.1 % (1.7-9.3); MPV 9.7 FL (7.4-10.4); NEUT# 2.61 X1000 (1.4-6.5); NEUT% 47.9 % (42.2-75.2); PLT 213 X1000 (130-400); RBC 4.75 XMIL (4.7-6.1); RDW 12.3 % (11.5-14.5); WBC 5.44 X1000 (4.8-10.8)
[2019-02-28 06:36] LABS: AGAP 12; ALBUMIN 3.9 g/dL (3.5-5.0); ALKALINE PHOSPHATASE 100 U/L (32-122); BUN 13 mg/dL (8-22); CALCIUM 9.7 mg/dL (8.8-10.2); CHLORIDE 97 mmol/L (98-107); COSMO 264; CREATININE 0.8 mg/dL (0.7-1.2); ESTIMATED GFR > 60; GLUCOSE 122 mg/dL (70-104); GOT 87 U/L (10-34); GPT 64 U/L (10-44); MAGNESIUM 1.6 mg/dL (1.5-2.7); POTASSIUM 4.7 mmol/L (3.5-5.1); SODIUM 131 mmol/L (136-145); TCO2 22 mmol/L (25-35); TOTAL PROTEIN 8.2 g/dL (6.3-8.3)
--- NOTE | 2019-02-28 10:15 | GRADED EXERCISE REPORT ---
DATE: 02/28/2019 STUDY: GXT EKG interpretation administration. The patient underwent GXT treadmill testing per modified Stone protocol. INDICATION: Chest pain. ORDERING PHYSICIAN: I believe was Aidee lowery. FINDINGS: Baseline EKG did show some ST-T wave inversions in 3 and AVF. He underwent treadmill testing per modified Stone protocol. His peak heart rate was calculated at 140, 85% of predicted. Baseline heart rate 98, baseline blood pressure 133/88. He did have some ST changes in I feel 2 and AVF that were greater than a millimeter. He already had some ST depression but it was noted in the post-stress images about a millimeter and there was some J-point elevation in the anterior leads. He did have some occasional ectopy as well. Peak heart rate was 144, peak blood pressure 148/90. Patient tolerated the procedure without difficulty. Exercise capacity is good. Blood pressure response was expected. The test was felt to be clinically negative but technically electrically positive, although again, he had ST changes in 3 and AVF prior to treadmill testing, although I am going to say it is probably electrically equivocal because his ST changes were not quite a millimeter. Myocardial perfusion will be reported separately. cc: Eddie Sadler MD
[2019-02-28] MEDS: HYDROCHLOROTHIAZIDE PO SCH (12:21)
[2019-02-28] MEDS: LOVENOX SUBQ SCH (12:21)
[2019-02-28] MEDS: ASPIRIN PO SCH (12:21)
[2019-02-28] MEDS: PRINIVIL PO SCH (12:21)
--- NOTE | 2019-02-28 14:26 | Diag Imaging Result Document ---
PROCEDURE NAME: MYOCARDIAL PERF SCAN, STR/REST - 02/27/2019 INDICATIONS: Chest pain. PROCEDURES PERFORMED: 1. Stone protocol stress (results dictated separately). 2. One-day stress rest myocardial perfusion imaging. PROCEDURE FINDINGS: 1. Stone protocol stress results dictated separately. 2. No evidence of abnormal extracardiac uptake. 3. TID ratio of 0.78. 4. Perfusion imaging demonstrates a small to moderate sized severe intensity reversible defect. This is located in the basal inferior septum and basal anterior septum. Again, this defect does appear to be reversible consistent with ischemic changes. 5. There is a reduced ejection fraction of 32%. The end-diastolic volume is 109, end systolic volume 74. There does appear to be hypokinesis to akinesis of the basal portion of the septum as well as some possible inferior hypokinesis. cc: MD Aidee Durham CRNP
[2019-02-28 15:57] VITALS: BP 160/104
--- NOTE | 2019-03-01 20:54 | DISCHARGE SUMMARY ---
ADMISSION DATE: 02/26/2019 DISCHARGE DATE: 02/28/2019 ADMISSION DIAGNOSES: 1. Chest pain, that is atypical. 2. Hypokalemia. 3. Hypomagnesemia. 4. Chronic left neck pain. 5. Elevated D-dimer. 6. Hepatitis C with cirrhosis and transaminitis. 7. History of supraventricular tachycardia. 8. Chronic obstructive pulmonary disease; no exacerbation. 9. Chronic back pain and spinal stenosis. 10. Hypertriglyceridemia. 11. Newly diagnosed diabetes mellitus type 2, with hemoglobin A1c of 6.5. 12. Tobacco abuse. 13. Marijuana abuse and polysubstance abuse. 14. Alcohol abuse. 15. Hypertension. DISCHARGE DIAGNOSES: 1. Chest pain, with positive stress test. 2. Systolic congestive heart failure, with ejection fraction of 40 to 45 percent. 3. Grade 1 left ventricular diastolic dysfunction. 4. New diagnosis of diabetes mellitus type 2, with a hemoglobin A1c is 6.5. 5. Hypertriglyceridemia. 6. Cirrhosis with hepatitis C and transaminitis. 7. Polysubstance abuse. CONSULTATIONS: None. SURGERIES AND PROCEDURES: None. He did have a cardiac stress test this morning. The exercise stress test was clinically negative, but technically electrically positive. The myocardial perfusion scan demonstrated a small to moderate size, severe intensity reversible defect. This is located in the basal inferior septum and basal anterior septum, and it does appear to be reversible, consistent with ischemic changes. Ejection fraction is 32% and end-diastolic volume is 109 and systolic volume is 74, and there does appear to be hypokinesis to akinesis of the basal portion of the septum, as well as some possible inferior hypokinesis. HOSPITAL COURSE: Mr. Harvey Ho is a 53-year-old, male who presented to [facility] with complaints of chest pain and fatigue. Apparently, he had been having some fatigue since the summer and some on and off chest pains also since the summer. Also had some left neck pain that radiated to the left chest, some dizziness, shortness of breath. He felt like he was just real tired all the time. Also felt like he could not clear his throat real good. Occasionally, he had sweats. Took Adderall the day before presentation. There was no sudden onset. He had at least been having some of those symptoms that had worsened over the past week. D-dimer was elevated, but CTA ruled out PE, although it did catch what looked like to be coronary disease, so he went for a stress test. Electrically it was positive on the walking stress test, and had the perfusion scan which also appeared to be positive, showing an EF of 32%. It showed hypokinesis in the basal portion of the septum, also possible inferior hypokinesis, and also showed a reversible defect. It was small to moderate in size, severe intensity, located in the basal inferior septum and the basal anterior septum, and appeared that it could be consistent with ischemic changes and reversible. His echocardiogram showed decreased ejection fraction of 40 to 45 percent. It showed a grade 1 diastolic dysfunction. He did not have any carotid disease and he did not have any more spells of chest pain. He will be discharged home. He will need to follow up with the animal ride attendant and his primary. DISCHARGE VITAL SIGNS: Temperature 98.3 degrees, heart rate 90, respiratory rate 20, blood pressure 160/104, O2 saturation 99% on room air. DISCHARGE LAB DATA: White blood cells 5000, hemoglobin 14, hematocrit 43. Sodium 131. Platelet count was 213,000. Potassium 4.7, BUN 13, creatinine 0.8, glucose 122, calcium 9.7, magnesium 1.6, bilirubin 0.90, AST 87, ALT 64, albumin 3.9. Triglycerides were 216. Urine drug screen on admit was positive for amphetamines and positive for cannabinoids. He had an RENNY screen that was negative. PERTINENT IMAGING: Chest x-ray is negative exam. Pulmonary arteriogram negative for PE, but showed some substantial coronary calcifications. Carotid was negative, or less than 39% on both carotids. Echocardiogram showed 40 to 45 percent ejection fraction and grade 1 diastolic dysfunction. EKG: Sinus tachycardia, rate 101, QTc 440. Another one was normal sinus rhythm, rate 79, QTc is 458. DISCHARGE DIET: Heart healthy and diabetic. DISCHARGE ACTIVITY: As tolerated. DISCHARGE MEDICATIONS: 1. Lisinopril/hydrochlorothiazide 20 mg p.o. daily. 2. Tricor 145 mg p.o. nightly. 3. Aspirin 81 mg p.o. daily. PHYSICIAN FOLLOWUP: Primary care physician Juan Armenta MD, and he will need to follow up with Cardiology. DISCHARGE INSTRUCTIONS: If your condition changes, contact physician and/or return to the emergency department. Changes may include, but are not limited to, shortness of breath, increased fatigue, excessive bleeding, unexplained weight loss or gain, unmanageable pain, signs or symptoms of infection. DISCHARGE DISPOSITION: Home. Dictated by LUCILA Stratton for Donovan Hartman MD cc: LUCILA Stratton MD
== END 2019-02-28 17:42 | disposition home or self-care (01) | DRG 313 ==
LOC: P.ED 21:07 → SUATTDRO 23:56 → P.MEDSURG 02-27 00:58
PROVIDERS: ATTEND Internal Medicine

== ENCOUNTER 2019-03-01 13:52 | Inpatient (IN) ==
[2019-03-01] MEDS ORDERED: ASPIRIN PO ONE (13:58)
[2019-03-01] MEDS ORDERED: M.V.I.-12 10 ML, FOLIC ACID 1 MG, MAGNESIUM SULFATE 1 GM, THIAMINE 100 MG in NS 1,000 ML IV ONE (14:16)
[2019-03-01 14:34] LABS: INR 0.97; PROTIME 13.4 Seconds (11.0-16.0)
[2019-03-01 14:35] LABS: PTT 26.4 Seconds (22.3-41.8)
[2019-03-01 14:38] LABS: CALCIUM 9.7 mg/dL (8.8-10.2); CREATININE 2.3 mg/dL (0.7-1.2); POTASSIUM 4.7 mmol/L (3.5-5.1); TOTAL BILIRUBIN 0.8 mg/dL (0.20-1.00); TOTAL PROTEIN 8.5 g/dL (6.3-8.3)
[2019-03-01 14:39] LABS: BASO# 0.03 X1000 (0.0-0.2); BASO% 0.3 % (0.0-0.8); EOS# 0.18 X1000 (0.0-0.7); EOS% 1.9 % (0.0-10.0); HEMATOCRIT 44.3 % (42.0-52.0); HEMOGLOBIN 14.7 g/dL (14.0-18.0); IMM GRAN# 0.04 X1000 (0.0-0.04); IMM GRAN% 0.4 % (0.0-0.5); LYMPH# 2.63 X1000 (1.2-3.4); LYMPH% 28.3 % (20.5-51.1); MCH 30.9 PG (27-31); MCHC 33.2 g/dL (33-37); MCV 93.1 FL (81-99); MONO# 1.18 X1000 (0.11-0.59); MONO% 12.7 % (1.7-9.3); MPV 9.9 FL (7.4-10.4); NEUT# 5.23 X1000 (1.4-6.5); NEUT% 56.4 % (42.2-75.2); PLT 226 X1000 (130-400); RBC 4.76 XMIL (4.7-6.1); RDW 12.6 % (11.5-14.5); WBC 9.29 X1000 (4.8-10.8)
[2019-03-01 15:03] LABS: CK INDEX 1.2 (0.0-2.5); CK-MB 4.76 ng/mL (0.0-5.0)
--- NOTE | 2019-03-01 15:33 | Diag Imaging Result Doc PS360 ---
EXAM: CHEST-2 VIEWS HISTORY: syncope TECHNIQUE: Two views COMPARISON: 02/26/2019 FINDINGS: The lungs are well expanded. The heart is not enlarged. The vessels are not distended. There are no infiltrates. No pleural effusions. IMPRESSION: No acute abnormality. Electronically signed by Shaan Metz 03/01/2019 3:31 PM
[2019-03-01] MEDS ORDERED: ULTRAM PO ONE (15:36)
[2019-03-01] MEDS: NORCO-5 PO PRN ×2 (16:26→21:47)
[2019-03-01 16:35] LABS: UR AMPHETAMINES QUAL PRESUMPTIVE POSITIVE (NONE DETECT); UR BENZODIAZEPIN QUAL PRESUMPTIVE POSITIVE (NONE DETECT); UR METHAMPHETAMINE QUAL PRESUMPTIVE POSITIVE (NONE DETECT)
[2019-03-01 16:36] LABS: UR BARBITUATES QUAL NONE DETECTED (NONE DETECT); UR CANNABINOIDS QUAL PRESUMPTIVE POSITIVE (NONE DETECT); UR COCAINE QUAL NONE DETECTED (NONE DETECT); UR METHADONE QUAL NONE DETECTED (NONE DETECT); UR OPIATES QUAL PRESUMPTIVE POSITIVE (NONE DETECT); UR OXYCODONE QUAL NONE DETECTED (NONE DETECT); UR PCP QUAL NONE DETECTED (NONE DETECT); UR PROPOXYPHENE QUAL NONE DETECTED (NONE DETECT); UR TCA QUAL NONE DETECTED (NONE DETECT)
--- NOTE | 2019-03-01 16:40 | PROVIDER DOCUMENTATION ---
This chart was entered by Sandra Rosen Scribe, acting as scribe for Ti Qureshi MD. HPI-Syncope/Dizziness - General Chief Complaint: Syncope Stated Complaint: SYNCOPE/DIZZY Time Seen by Provider: 03/01/19 14:22 Source: patient Allergies/Adverse Reactions: Patient Allergies Allergy/AdvReac Type Severity Reaction Status Date / Time No Known Allergies Allergy Verified 03/01/19 14:25 Home Medications: Home Medication List Medication Instructions Recorded Confirmed Last Taken Type Aspirin 81 mg PO DAILY #90 chewtab 02/28/19 03/01/19 Unknown Rx Carvedilol [Coreg] 3.125 mg PO Q12HR #60 tab 02/28/19 03/01/19 Unknown Rx Fenofibrate [Tricor] 145 mg PO QHS #30 tab 02/28/19 03/01/19 Unknown Rx LISINOpril [Prinivil] 2.5 mg PO DAILY #60 tab 02/28/19 03/01/19 Unknown Rx - History of Present Illness-Syncope/Dizzy Nature of Presenting Problem: 53yom 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 Pt reports he was released from inpatient at [facility] last night, got up this morning to get meds filled and felt dizzy. Pt reports dizziness continued throughout morning and when he got up quickly to go into bathroom and passed out and his girlfriend helped him up. Pt also reports decreased appetite, cough w/phlegm, mild SOB. Pt reports he has an appointment with [facility] in 1wk. Pt has hx of cirrhosis. If witnessed syncope, by whom?: girlfriend Onset/Duration: reports: just prior to arrival Timing: reports: resolved prior to arrival Position/Activity at time of episode: reports: activity Symptoms prior to episode: reports: lightheaded Location of injury. (If syncope resulted in an injury.): reports: none Current Symptoms: reports: dizzy Recently Seen Here or By Another Healthcare Provider: Yes (just realeased from inpatient last night) - Dizziness Severity in ED: reports: mild Review of Systems - Adult - REVIEW OF SYSTEMS - ADULT Constitutional: reports: see HPI. denies: chills, fever, fatique Eyes: reports: no symptoms reported Ears, Nose, Mouth & Throat: reports: no symptoms reported Cardiovascular: reports: see HPI. denies: chest pain Respiratory: reports: see HPI, cough, shortness of breath Gastrointestinal: reports: see HPI. denies: poor appetite Genitourinary: reports: no symptoms reported Musculoskeletal: reports: no symptoms reported Integumentary: reports: no symptoms reported Neurological: reports: see HPI, dizziness/vertigo, syncope Psychiatric: reports: no symptoms reported Endocrine: reports: no symptoms reported Hematologic/Lymphatic: reports: no symptoms reported Allergic/Immunologic: reports: no symptoms reported All Other Systems: Reviewed and Negative Past History - Adult - PAST MEDICAL HISTORY-ADULT Review of Records: reports: Nursing Assessment Review, Medications Reviewed, Social history reviewed & non-contributory. Major Childhood Illnesses: reports: denies history Cardiovascular: reports: HTN, hyperlipidemia Respiratory: reports: denies history Gastrointestinal: reports: hepatitis, liver disease Obstetrical/Gynecological: reports: denies history Genitourinary: reports: denies history Musculoskeletal: reports: denies history Neurological: reports: denies history Psychiatric: reports: denies history Endocrine/Immune: reports: denies history Other Conditions: reports: denies history - PRIOR SURGERIES/PROCEDURES Surgical/Procedure History: reports: cholecystectomy - IMMUNIZATION STATUS Childhood Immunizations: See Nurse Assessment Flu Vaccine: See Nurse Assessment - FAMILY HISTORY Family History: reviewed, not pertinent - SOCIAL HISTORY Smoking: cigarettes, greater than 1 pack/day Provider spent 3-5 mins advising pt. on dangers of tobacco.: Discussed manners to quit use, and f/u contacts for add'l counseling. Substance Use: marijuana, opiates Alcohol Use Frequency: every day Number of drinks per typical drinking period:: 3-4 drinks Physical Exam-General - PHYSICAL EXAM-ADULT Initial Vital Signs Reviewed: Yes - CONSTITUTIONAL General Appearance: appears well, alert, no apparent distress. negative: anxious, combative - EYES Eyes: PERRL/EOMI, pink conjunctivae - HEAD, EARS, NOSE, MOUTH & THROAT HENMT: normocephalic/atraumatic, moist mucous membranes. negative: angioedema - NECK Neck: normal inspection - RESPIRATORY Respiratory: chest non-tender, lungs clear, normal breath sounds. negative: rhonchi - CARDIOVASCULAR Cardiovascular: normal peripheral pulses, regular rate, rhythm, no edema. negative: bradycardia, tachycardia - GASTROINTESTINAL (ABDOMEN) Abdominal Exam: normal bowel sounds, non tender, soft. negative: rebound - MUSCULOSKELETAL Extremity: normal inspection. negative: deformity - SKIN Integumentary: normal color. negative: diaphoresis - PSYCHIATRIC Psych/Mental Status: normal mood/affect, oriented x 3. negative: anxious, disheveled Progress - PLAN OF CARE/RESULTS Progress/Plan/Lab Results: Vital Signs - 8 hr 03/01/19 13:49 Temperature 98.7 F Pulse Rate 96 H Respiratory Rate 18 Blood Pressure 94/68 O2 Sat by Pulse Oximetry 98 Laboratory Results - last 24 hr 03/01/19 03/01/19 03/01/19 14:11 14:11 14:11 WBC 9.29 RBC 4.76 Hgb 14.7 Hct 44.3 MCV 93.1 MCH 30.9 MCHC 33.2 RDW Std Deviation 12.6 Plt Count 226 MPV 9.9 Immature Gran % (Auto) 0.4 Neut % (Auto) 56.4 Lymph % (Auto) 28.3 [place] % (Auto) 12.7 H Eos % (Auto) 1.9 Baso % (Auto) 0.3 Immature Gran # (Auto) 0.04 Neut # (Auto) 5.23 Lymph # (Auto) 2.63 [place] # (Auto) 1.18 H Eos # (Auto) 0.18 Baso # (Auto) 0.03 PT INR PTT (Actin FS) Sodium 131 L Potassium 4.7 Chloride 97 L Carbon Dioxide 20 L Anion Gap 14 BUN 25 H D Creatinine 2.3 H Estimated GFR/1.73 m2 30 BUN/Creatinine Ratio 11 Glucose 133 H POC Glucose Calculated Osmolality 269 Calcium 9.7 Magnesium Total Bilirubin 0.80 AST 66 H ALT 56 H Alkaline Phosphatase 96 Creatine Kinase 398 H Creatine Kinase Index 1.2 CK-MB (CK-2) 4.76 Troponin T Yrm-N-Pednsotmzyc Pept 212 H Total Protein 8.5 H Albumin 4.0 Globulin 5.0 Albumin/Globulin Ratio 1.0 Plasma Lactate Urine Opiates Screen Ur Oxycodone Screen Urine Methadone Screen U Propoxyphene Qual Ur Barbituates Screen Ur Tricyclics Screen Ur Phencyclidine Scrn Ur Amphetamines Screen U Methamphetamines Scrn U Benzodiazepines Scrn Urine Cocaine Screen U Cannabinoids Screen Plasma/Serum Ethyl Alc 03/01/19 03/01/19 03/01/19 14:11 14:11 14:11 WBC RBC Hgb Hct MCV MCH MCHC RDW Std Deviation Plt Count MPV Immature Gran % (Auto) Neut % (Auto) Lymph % (Auto) [place] % (Auto) Eos % (Auto) Baso % (Auto) Immature Gran # (Auto) Neut # (Auto) Lymph # (Auto) [place] # (Auto) Eos # (Auto) Baso # (Auto) PT 13.4 INR 0.97 PTT (Actin FS) 26.4 Sodium Potassium Chloride Carbon Dioxide Anion Gap BUN Creatinine Estimated GFR/1.73 m2 BUN/Creatinine Ratio Glucose POC Glucose 128 H Calculated Osmolality Calcium Magnesium Total Bilirubin AST ALT Alkaline Phosphatase Creatine Kinase Creatine Kinase Index CK-MB (CK-2) Troponin T < 0.010 Bfs-V-Athkxlumdgf Pept Total Protein Albumin Globulin Albumin/Globulin Ratio Plasma Lactate Urine Opiates Screen Ur Oxycodone Screen Urine Methadone Screen U Propoxyphene Qual Ur Barbituates Screen Ur Tricyclics Screen Ur Phencyclidine Scrn Ur Amphetamines Screen U Methamphetamines Scrn U Benzodiazepines Scrn Urine Cocaine Screen U Cannabinoids Screen Plasma/Serum Ethyl Alc 03/01/19 03/01/19 03/01/19 14:11 14:11 15:48 WBC RBC Hgb Hct MCV MCH MCHC RDW Std Deviation Plt Count MPV Immature Gran % (Auto) Neut % (Auto) Lymph % (Auto) [place] % (Auto) Eos % (Auto) Baso % (Auto) Immature Gran # (Auto) Neut # (Auto) Lymph # (Auto) [place] # (Auto) Eos # (Auto) Baso # (Auto) PT INR PTT (Actin FS) Sodium Potassium Chloride Carbon Dioxide Anion Gap BUN Creatinine Estimated GFR/1.73 m2 BUN/Creatinine Ratio Glucose POC Glucose Calculated Osmolality Calcium Magnesium 1.7 Total Bilirubin AST ALT Alkaline Phosphatase Creatine Kinase Creatine Kinase Index CK-MB (CK-2) Troponin T Krg-U-Kcrbbqchgjh Pept Total Protein Albumin Globulin Albumin/Globulin Ratio Plasma Lactate 2.0 Urine Opiates Screen Ur Oxycodone Screen Urine Methadone Screen U Propoxyphene Qual Ur Barbituates Screen Ur Tricyclics Screen Ur Phencyclidine Scrn Ur Amphetamines Screen U Methamphetamines Scrn U Benzodiazepines Scrn Urine Cocaine Screen U Cannabinoids Screen Plasma/Serum Ethyl Alc 03/01/19 15:55 WBC RBC Hgb Hct MCV MCH MCHC RDW Std Deviation Plt Count MPV Immature Gran % (Auto) Neut % (Auto) Lymph % (Auto) [place] % (Auto) Eos % (Auto) Baso % (Auto) Immature Gran # (Auto) Neut # (Auto) Lymph # (Auto) [place] # (Auto) Eos # (Auto) Baso # (Auto) PT INR PTT (Actin FS) Sodium Potassium Chloride Carbon Dioxide Anion Gap BUN Creatinine Estimated GFR/1.73 m2 BUN/Creatinine Ratio Glucose POC Glucose Calculated Osmolality Calcium Magnesium Total Bilirubin AST ALT Alkaline Phosphatase Creatine Kinase Creatine Kinase Index CK-MB (CK-2) Troponin T Urz-S-Vmnwvfrqmgi Pept Total Protein Albumin Globulin Albumin/Globulin Ratio Plasma Lactate Urine Opiates Screen PRESUMPTIVE POSITIVE A Ur Oxycodone Screen NONE DETECTED Urine Methadone Screen NONE DETECTED U Propoxyphene Qual NONE DETECTED Ur Barbituates Screen NONE DETECTED Ur Tricyclics Screen NONE DETECTED Ur Phencyclidine Scrn NONE DETECTED Ur Amphetamines Screen PRESUMPTIVE POSITIVE A U Methamphetamines Scrn PRESUMPTIVE POSITIVE A U Benzodiazepines Scrn PRESUMPTIVE POSITIVE A Urine Cocaine Screen NONE DETECTED U Cannabinoids Screen PRESUMPTIVE POSITIVE A Plasma/Serum Ethyl Alc Orders Category Date Time Status Cardiac Monitoring DIRECTED Care 03/01/19 13:58 Active Oxygen Therapy- ED Nursing DIRECTED Care 03/01/19 13:58 Active Saline Loc NOW Care 03/01/19 13:58 Active CHEST-2 VIEWS [RAD] Stat Exams 03/01/19 13:58 Completed ALCOHOL BLOOD Stat Lab 03/01/19 14:11 Completed CBC WITH ELECTRONIC DIFF [HEME] Stat Lab 03/01/19 14:11 Completed CBC WITH ELECTRONIC DIFF [HEME] Stat Lab 03/01/19 16:35 Uncollected CK PROFILE [SP CHEM] Stat Lab 03/01/19 14:11 Completed COMPREHENSIVE METABOLIC PANEL [CHEM] Stat Lab 03/01/19 14:11 Completed COMPREHENSIVE METABOLIC PANEL [CHEM] Stat Lab 03/01/19 16:36 Uncollected LACTATE, PLASMA [CHEM] Stat Lab 03/01/19 15:48 Completed MAGNESIUM [CHEM] Stat Lab 03/01/19 14:11 Completed MAGNESIUM [CHEM] Stat Lab 03/01/19 16:36 Uncollected PRO B-NATRIURETIC PEPTIDE Stat Lab 03/01/19 14:11 Completed PROTIME WITH INR [COAG] Stat Lab 03/01/19 14:11 Completed PTT [COAG] Stat Lab 03/01/19 14:11 Completed TROPONIN T Stat Lab 03/01/19 14:11 Completed TROPONIN T Stat Lab 03/01/19 16:36 Uncollected URINALYSIS W/POSS RFLX CULT [URINALYSIS] Stat Lab 03/01/19 16:37 Uncollected URINE DRUG SCREEN PL Stat Lab 03/01/19 15:55 Received Aspirin Med 03/01/19 13:58 Discontinued 325 mg PO NOW ONE Hydrocodone/APAP 5 mg/325 mg [[place]-5] Med 03/01/19 16:18 Active 1 each PO Q4H PRN PRN Mvi [M.v.i.-12] 10 ml Med 03/01/19 14:16 Discontinued Folic Acid 1 mg Magnesium Sulfate 1 gm Thiamine 100 mg 0.9% Sodium Chloride Inj [Ns] 1,000 ml IV NOW Tramadol [Ultram] Med 03/01/19 15:36 Discontinued 50 mg PO NOW ONE CP/SOB/Palp >45 yrs of Age Stat Oth 03/01/19 13:58 Ordered EKG [EKG] Stat Ther 03/01/19 13:58 Ordered Transfer/Admit Order [TRANSFER] Routine Transfer 03/01/19 16:19 Ordered Result Diagrams: 03/01/19 14:11 03/01/19 14:11 - EKG 2 Time of EKG reading by physician:: 14:29 EKG Read and Signed by:: Ti Qureshi EKG Interpretation (*Must complete 3 of following elements*): Normal Rate: 89 Rhythm: NSR QRS: normal MO Interval: normal - XRAY 1 XRAY: Bilateral XRAY Study: Chest Impression: See EMR Report (IMPRESSION: No acute abnormality. Electronically signed by Shaan Metz 03/01/2019 3:31 PM) - CONSULTS/PCP/HOSPITALIST Notification #1 *Consult/PCP/Hospitalist*: DR RODRIGUEZ Time Discussed: 16:00 Consult Disposition: Admit Departure - Departure Date of Disposition Decision: 03/01/19 Time of Disposition Decision: 16:39 DIAGNOSIS: Syncope and collapse, Hypotension Disposition: ADMITTED INPATIENT 09 Certified Medical Emergency: Emergent Condition: Stable Additional Instructions: ED Follow Up Instructions: You have been treated by a care provider in the Emergency Department. These instructions are being provided to you so you can have an understanding of how to care for yourself upon discharge. Upon discharge from the Emergency Department, you are responsible for making arrangements for follow-up care by a physician of your choice. Take all prescribed medications as directed. Return to the Emergency Department immediately for any new or worsening symptoms. You may call the Physician Referral phone number at [phone] to obtain a list of Physicians who are taking new patients. Referrals and Follow-Ups: None,PCP [Primary Care Provider] - Discharge Education: Steps to Quit Smoking, Qydi-ka-Aliv - Critical Care Note This patient required my direct & personal management of CC.: No Attestation - Physician/ KAIN Attestation Patient care was provided by Advanced Practice Provider:: No The physician spent face to face time with patient:: Yes Advanced Practice Provider documentation review:: Supervising physician onsite and consulted in the evaluation and care of this patient. The physician did have a face to face encounter with the patient. This chart was documented by the indicated scribe, (Sandra Rosen, [place]) and accurately reflects the services I performed and decisions made by me, Ti Qureshi MD, as attested by the provider's signature.
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
--- NOTE | 2019-03-01 19:18 | EKG Report ---
Test Performed on : 03/01/2019 2:08:22 PM Test Reason : syncope Blood Pressure : / mmHG Vent. Rate : 089 BPM Atrial Rate : 089 BPM P-R Int : 154 ms QRS Dur : 094 ms QT Int : 374 ms P-R-T Axes : 062 003 026 degrees QTc Int : 455 ms Normal sinus rhythm. Normal ECG When compared with ECG of 27-FEB-2019 00:06, (Unconfirmed) No significant change was found Confirmed by Mandeep Sharma MD ([id number]) on 03/17/2019 7:38:11 AM
[2019-03-01] MEDS ORDERED: ZOFRAN IV PRN (20:26)
[2019-03-01] MEDS: TRICOR PO SCH (21:47)
[2019-03-01] MEDS: HEPARIN SUBQ SCH (21:47)
[2019-03-01] MEDS ORDERED: FLU VACCINE IM ONE (22:02)
[2019-03-02] MEDS: NORCO-5 PO PRN ×4 (00:47→20:45)
[2019-03-02] MEDS: TESSALON PO PRN ×2 (02:36→13:51)
[2019-03-02 03:09] LABS: HEMATOCRIT 40.8 % (42.0-52.0); HEMOGLOBIN 13.9 g/dL (14.0-18.0); MCH 31.6 PG (27-31); MCHC 34.1 g/dL (33-37); MCV 92.7 FL (81-99); MPV 9.9 FL (7.4-10.4); RBC 4.4 XMIL (4.7-6.1); RDW 12.5 % (11.5-14.5); WBC 9.62 X1000 (4.8-10.8)
[2019-03-02 04:21] LABS: BUN 26 mg/dL (8-22); MAGNESIUM 1.9 mg/dL (1.5-2.7)
[2019-03-02 05:08] LABS: AGAP 16; CHLORIDE 97 mmol/L (98-107); COSMO 267; CREATININE 1.4 mg/dL (0.7-1.2); GLUCOSE 115 mg/dL (70-104); POTASSIUM 4.5 mmol/L (3.5-5.1); SODIUM 131 mmol/L (136-145); TCO2 18 mmol/L (25-35)
--- NOTE | 2019-03-02 07:15 | EKG Report ---
Test Performed on : 03/02/2019 06:47:53 AM Test Reason : chest pain Blood Pressure : / mmHG Vent. Rate : 062 BPM Atrial Rate : 062 BPM P-R Int : 162 ms QRS Dur : 094 ms QT Int : 442 ms P-R-T Axes : 064 030 038 degrees QTc Int : 448 ms Normal sinus rhythm. Normal ECG When compared with ECG of 01-MAR-2019 14:08, (Unconfirmed) No significant change was found Confirmed by Jose Luis STANTON, P.J.M ([id number]) on 03/03/2019 5:37:19 PM
[2019-03-02] MEDS: HEPARIN SUBQ SCH ×2 (08:15→20:45)
[2019-03-02] MEDS: ASPIRIN PO SCH (08:15)
[2019-03-02] MEDS: PRILOSEC PO SCH (08:15)
[2019-03-02] MEDS ORDERED: 1/2 NS 1,000 ML IV SCH (11:00)
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
[2019-03-02] MEDS: PRINIVIL PO SCH (11:44)
[2019-03-02] MEDS: COREG PO SCH ×2 (11:44→20:45)
--- NOTE | 2019-03-02 11:49 | Diag Imaging Result Doc PS360 ---
EXAM: CT THORAX W/O CONTRAST HISTORY: Dyspnea, cough, evaluate for pneumonia TECHNIQUE: CT chest without contrast COMPARISON: None. FINDINGS: No pleural effusions. The heart is borderline mildly prominent. No aortic aneurysm. Severe coronary artery atherosclerosis. No enlarged lymph nodes. There are scattered bilateral small nodular infiltrates. No consolidation. No bronchiectasis. IMPRESSION: 1.Small bilateral patchy nodular infiltrates 2.Borderline mildly prominent heart with severe coronary artery atherosclerosis This exam was performed using automated exposure control, adjustment of mA or kV according to patient size, and/or use of iterative reconstruction technique. Electronically signed by Shaan Metz 03/02/2019 11:47 AM
[2019-03-02] MEDS ORDERED: LASIX PO ONE (12:17)
[2019-03-02] MEDS ORDERED: SODIUM BICARBONATE 8.4% 150 MEQ in D5W 1,000 ML IV SCH (12:30)
[2019-03-02] MEDS: MUCOMYST 20% PO SCH ×2 (12:55→20:45)
--- NOTE | 2019-03-02 14:25 | PROGRESS NOTE ---
DATE: 03/02/2019 INTERVAL HISTORY: He has not had any more syncope episodes. His kidney function is improving. He was on hydrochlorothiazide lisinopril at home. We discussed about clinical volume depletion. We discussed about possible further cardiac testing. I answered all of his questions. Currently, patient denies any chest pain, shortness of breath. He is coughing with expectoration. He denies any nausea, vomiting, or diarrhea. VITALS: Temperature 97.6 degrees, pulse 85, respiratory 24, blood pressure 120/70, saturating 100% on room air. PHYSICAL EXAMINATION: Not in acute distress.HEENT: Oral cavity is moist. Lungs: Air entry bilaterally equal. Mild end-expiratory wheezes and inspiratory crackles on right infrascapular region. Cardiovascular: S1, S2 normal. No murmur, rub, or gallop. Abdomen: Soft, nontender. No hepatosplenomegaly. No lower extremity edema. Skin: Decreased turgor. Neurologic: He is alert and oriented x3. LABS: Suggestive of essentially unremarkable CBC, hyponatremia, hypochloremia, improving BUN, creatinine, mild hyperglycemia. Troponin negative x4. TSH 1.6. His urinalysis was positive for opiates, amphetamine, methamphetamine, benzodiazepines and cannabinoids. IMAGING: Chest x-ray was performed which did not have any acute cardiopulmonary process. There is some hazy irregular opacity in the left lower lobe. EKG had normal sinus rhythm. ASSESSMENT AND PLAN: 1. Syncope. Differential includes hypotension related to antihypertensive medication use, clinical volume depletion and orthostasis. I will hold antihypertensive medication, give him gentle intravenous fluid resuscitation. His EKG had normal sinus rhythm. I will keep him on telemetry unit to detect for any cardiac arrhythmia. 2. Acute kidney injury. This could be related to intravascular volume depletion, hypotension. Follow up daily basic metabolic profile. 3. History of recent chest discomfort. 4. History of recent chest discomfort with a positive nuclear medicine stress test for basal inferior hypokinesia. Continue aspirin and follow further Cardiology recommendation about need for coronary angiography. 5. Alcohol use disorder, hepatitis C, chronic obstructive pulmonary disease, spinal stenosis, currently appears to be stable. 6. Cough follow-up chest CT to rule out pneumonia and sputum culture next. DISPOSITION: I will continue to monitor patient inside the hospital. Plan of care discussed with him. All of his questions have been answered. cc: Neo Simmons MD
[2019-03-02] MEDS ORDERED: TYLENOL PO PRN (18:37)
[2019-03-02] MEDS ORDERED: BIDEX PO PRN (18:38)
[2019-03-02] MEDS ORDERED: ROCEPHIN 1 GM in NS 50 ML IV SCH (18:45)
[2019-03-02] MEDS: ZITHROMAX PO SCH (19:39)
[2019-03-02] MEDS: TRICOR PO SCH (20:45)
--- NOTE | 2019-03-03 06:20 | GASTROENTEROLOGY CONSULTATION ---
DATE: 03/02/2019 CONSULTING PHYSICIAN: Dr. Ross. REASON FOR CONSULTATION: Dysphagia. HISTORY: This is a 43-year-old male with multiple medical problems. He was admitted to the hospital with shortness of breath and some chest pain. Apparently, he has had some syncopal episodes. During his evaluation, he also mentioned that he has had significant cough. He attributed that to his medication. He has been on IRISH inhibitor. He thinks that that is making him cough to the point that he has some sore throat, and when he swallows he had some discomfort while swallowing. He has been on proton pump inhibitor that seems to have helped his reflux symptoms and his heartburn, but the odynophagia continues because of his coughing. He tells me that he has not had any difficulty in eating. In fact during my history and physical, I noted that he had just finished his breakfast. He did not have any trouble keeping it down. He denied any associated nausea or vomiting. He has not had any constipation or diarrhea. He denied any blood or mucus in his stool. He has not had any hemoptysis. He denies fever or chills. He has not had any dysuria, polyuria or hematuria. PAST MEDICAL HISTORY: Significant for chronic hepatitis C with compensated cirrhosis. History of diabetes, polysubstance abuse, hyperlipidemia, and rheumatoid arthritis. Carries the diagnosis of COPD and cardiomyopathy. PAST SURGICAL HISTORY: Cholecystectomy and liver biopsy. MEDICATIONS: Prior to hospitalization, he was on aspirin, Coreg, TriCor, and Prinivil. ALLERGIES: No known drug allergies. SOCIAL HISTORY: Patient smokes about half a pack of cigarettes per day. He still drinks about 3 to 4 beers every other day. He has used marijuana. FAMILY HISTORY: Noncontributory. REVIEW OF SYSTEMS: As per HPI. PHYSICAL EXAMINATION: A very pleasant male. He is lying in bed. He is conscious. He just finished his breakfast.Vitals: Temperature 98 degrees Fahrenheit, pulse 75 per minute, breathing 24, and blood pressure 131/80. HEENT: Head is atraumatic and normocephalic. Eyes: Conjunctivae is normal. Sclerae anicteric. Nares are patent. No discharge. Mouth: Buccal mucosa is moist. Throat is normal. Neck: Neck is supple. No lymphadenopathy or thyromegaly. Lungs: Chest bilaterally symmetrical. It is moving with respirations. Breath sounds audible bilaterally. No rhonchi or crepitations could be heard. Heart: Regular. No murmur could be appreciated. Abdomen: Full and soft. It is nontender. I could not appreciate a mass or visceromegaly. Bowel sounds are audible. No pedal edema noted. LABORATORIES: Reviewed which showed WBC is 9.29, hemoglobin 14.7, hematocrit 44.3, MCV 93.1, and platelets were 226,000. PT 13.4, INR 0.97, and PTT 26.4. Sodium 131, potassium 4.7, chloride 97, bicarb 20, BUN 25, and creatinine 2.3. AST 66, ALT 56, alkaline phosphatase 96. Total bilirubin was 0.80. Albumin was 4.0. Multiple tox screen has positive methamphetamine, benzodiazepine and cannabinoids as well as opiates. IMPRESSION: This is a 53-year-old, male with multi substance abuse has history of compensated cirrhosis, and has presented with cough and has been complaining of some sore throat discomfort when he is swallowing. Otherwise, he has been eating, has not had any problems swallowing, and has been able to keep food down. He is on proton pump inhibitor, and has had no issues with reflux symptoms. He tells me that he is ready to be discharged. Once discharged, he can be followed up as an outpatient where he needs to be evaluated. He may need EGD and possible dilation which can be done as an outpatient. He needs to continue on PPI. We may have to consider switching his IRISH inhibitor to other medication that will help resolve his cough. I will be available if needed. Otherwise, I will see him at the office after discharge. cc: Petr Downey MD
[2019-03-03 06:52] LABS: HEMATOCRIT 41.8 % (42.0-52.0); HEMOGLOBIN 14.3 g/dL (14.0-18.0); MCH 32.2 PG (27-31); MCHC 34.2 g/dL (33-37); MCV 94.1 FL (81-99); MPV 10.3 FL (7.4-10.4); PROTIME 13.3 Seconds (11.0-16.0); RBC 4.44 XMIL (4.7-6.1); RDW 12.8 % (11.5-14.5); WBC 6.01 X1000 (4.8-10.8)
[2019-03-03 07:17] LABS: AGAP 12; BUN 19 mg/dL (8-22); CALCIUM 9.4 mg/dL (8.8-10.2); CHLORIDE 93 mmol/L (98-107); COSMO 268; ESTIMATED GFR > 60; GLUCOSE 121 mg/dL (70-104); POTASSIUM 3.7 mmol/L (3.5-5.1); SODIUM 132 mmol/L (136-145); TCO2 27 mmol/L (25-35)
[2019-03-03] MEDS: PRINIVIL PO SCH (08:11)
--- NOTE | 2019-03-03 08:16 | EKG Report ---
Test Performed on : 03/03/2019 06:54:38 AM Test Reason : chest pain Blood Pressure : / mmHG Vent. Rate : 074 BPM Atrial Rate : 074 BPM P-R Int : 156 ms QRS Dur : 098 ms QT Int : 404 ms P-R-T Axes : 057 035 036 degrees QTc Int : 448 ms Normal sinus rhythm. Normal ECG When compared with ECG of 02-MAR-2019 06:47, (Unconfirmed) No significant change was found Confirmed by Jose Luis STANTON, P.J.M ([id number]) on 03/03/2019 5:40:20 PM
[2019-03-03] MEDS: NORCO-5 PO PRN (08:20)
[2019-03-03] MEDS: PRILOSEC PO SCH (08:20)
[2019-03-03] MEDS: ZITHROMAX PO SCH (08:20)
[2019-03-03] MEDS: COREG PO SCH (08:20)
[2019-03-03] MEDS: ASPIRIN PO SCH (08:20)
[2019-03-03] MEDS: HEPARIN SUBQ SCH (08:21)
[2019-03-03] MEDS: MUCOMYST 20% PO SCH (08:35)
[2019-03-03] MEDS ORDERED: LASIX PO SCH (09:00)
[2019-03-03] MEDS ORDERED: HEPARIN 1000 UNITS/NS 2,000 UNIT/1,000 ML IV.SOLN ONE (09:41)
[2019-03-03] MEDS ORDERED: DEMEROL ONE (09:41)
[2019-03-03] MEDS ORDERED: VERSED ONE (09:41)
[2019-03-03] MEDS ORDERED: NS 1,000 ML ONE (09:43)
[2019-03-03] MEDS ORDERED: ANESTHESIA PB SET 88 IN 5742 ONE (09:43)
[2019-03-03] MEDS ORDERED: NITROGLYCERIN ONE (09:43)
[2019-03-03] MEDS ORDERED: CLAVE TWINSITE 32 IN 11959 ONE (09:43)
--- NOTE | 2019-03-03 12:09 | EKG Report ---
Test Performed on : 03/03/2019 11:36:27 AM Test Reason : post cath Blood Pressure : / mmHG Vent. Rate : 076 BPM Atrial Rate : 076 BPM P-R Int : 164 ms QRS Dur : 102 ms QT Int : 392 ms P-R-T Axes : 065 024 001 degrees QTc Int : 441 ms Normal sinus rhythm. Normal ECG When compared with ECG of 03-MAR-2019 06:54, (Unconfirmed) No significant change was found Confirmed by Jose Luis STANTON, P.J.M ([id number]) on 03/03/2019 5:41:01 PM
--- NOTE | 2019-03-03 13:55 | PROGRESS NOTE ---
DATE: 03/03/2019 INTERVAL HISTORY: No acute events overnight. He got a CT scan of his chest, which had multifocal pneumonia. He continues to cough. His blood culture and sputum culture are in lab. He is feeling better. One of his orthostatic vitals was positive. Currently, he is denying any chest pain or shortness of breath. He is feeling better. He said he had a good night's sleep. His kidney function has normalized. He is denying dizziness. VITALS: Temperature 98.6 degrees, pulse 88, respiratory rate 18, blood pressure 108/60, saturating 100% on room air. PHYSICAL EXAMINATION: General: Not in acute distress. HEENT: Oral cavity is moist. Respiratory: Air entry bilaterally equal. No wheeze or rhonchi. Mild inspiratory crackles in bilateral infrascapular region. Cardiac: S1, S2 normal. No murmur, rub, or gallop. Abdomen: Soft, nontender. Extremities: No lower extremity edema. Skin: He appears well hydrated. Neurologic: He is alert and oriented x3. DIAGNOSTIC DATA: Labs suggestive of no leukocytosis, stable electrolytes, normalization of kidney function. His blood sugars are acceptable. Troponins have been negative. TSH and lactate were within normal range. He did have multiple substances in his urine and he was counseled about not using them in future. Chest CT performed yesterday had small bilateral patchy nodular infiltrate. There was severe coronary artery atherosclerosis. ASSESSMENT AND PLAN: 1. Syncope, likely related to hypotension related to antihypertensive medication use and clinical volume and intravascular volume depletion leading to orthostatic hypotension. Holding antihypertensive. I am holding his hydrochlorothiazide/lisinopril, and he has been started on carvedilol on low-dose Lasix. Currently, his kidney function appears to be normal. His lisinopril would also be resumed since he appears to be intravascularly repleted now. 2. Bilateral multifocal pneumonia. Continue ceftriaxone and azithromycin. Follow up blood cultures, sputum culture, and urine antigens. 3. Acute kidney injury could be related to intravascular volume depletion. Use of hydrochlorothiazide and lisinopril now resolved. I will continue to monitor BMP. 4. Recent history of chest discomfort, with coronary atherosclerosis on CT scan and abnormal nuclear medicine stress test. The patient to undergo coronary angiography today. I will appreciate post angiography recommendation. 5. Alcohol use disorder, hepatitis C, recreational drug use. He was counseled about following up with regular physician and GI evaluation for treatment of this. He was counseled about stopping recreational substances and alcohol. He agreed. 6. Others. He does have COPD, spinal stenosis, which currently appears to be stable. DISPOSITION: I will monitor the patient inside the hospital post angiography and further await cardiology recommendation. Plan of care discussed with him. His questions have been answered. cc: Neo Simmons MD
--- NOTE | 2019-03-03 14:24 | CARDIAC CATH REPORT ---
DATE: 03/03/2019 PROCEDURES: 1. Left heart catheterization. 2. Selective bilateral coronary arteriography. 3. Left ventriculography. 4. Selective opacification of right femoral artery and deployment of 6 [place] Angio-Seal device. HISTORY: A 53-year-old male presented with increasing dyspnea. A CT of the chest shows dense coronary calcifications, and nuclear stress myocardial perfusion study showed abnormalities including ischemia of the inferior wall plus scar. Dr. Antoine recommended heart catheterization. Benefits, risks and complications were discussed. He understood and requested to proceed. DESCRIPTION: The patient came in to the cardiac laboratory asst in a fasting state. His right groin was prepped and draped in a sterile fashion, anesthetized with lidocaine 1%. A 6 [place] sheath was inserted into the right femoral artery by following modified Seldinger technique. Thereafter using a 6 [place] left Chandra 4 and right Chandra 4 catheter, the left and the right coronary artery were selectively opacified in multiple projections. Using the right Chandra catheter, the aortic valve was negotiated and left ventricular pressure was determined. Left ventriculogram was performed in 60 degree [place] projection and 30 degree [place] projection by hand injection. Thereafter, the right Chandra catheter was removed and the sheath was flushed. The right femoral artery opacified and then an Angio-Seal device was successfully deployed at the level of the right femoral artery. The patient tolerated the procedure quite well without any obvious complications. SUMMARY OF HEMODYNAMIC FINDINGS: Central aortic pressure is 88/53, left ventricular pressure 88/6. The post LV gram LV pressure is 85/4. Final central aortic pressure 85/45, mean 62. SUMMARY OF THE ANGIOGRAPHIC FINDINGS: 1. Left main coronary artery: The vessel arises from left coronary sinus of Valsalva in a normal fashion, divides into LAD and circumflex. Left main coronary artery is normal. 2. Left anterior descending coronary artery: The vessel shows heavy calcification of the proximal segment. The vessel proximally trifurcates into 2 diagonal branches and the LAD proper. The diagonal branches are calcified and showed some moderate proximal stenosis no more than 40%. Then the LAD proper at that level after the origin of these 2 diagonal branches and the first septal branch which is subtotally occluded in turn shows a proximal 70% stenosis. The LAD thereafter continues down the anterior interventricular groove shows minor irregularities and reaches the apex of the left ventricle. The LAD appears to be graftable. 3. Circumflex: The circumflex is nondominant vessel, gives rise to a sinus bernardo branch. It shows a proximal calcification in the order of 40% to 50%. Thereafter gives rise to an obtuse marginal branch that is totally occluded. Then the circumflex gives rise to 2 terminal marginal vessels, one is a posterolateral branch and the other one is A-V branch. This vessel showed no significant disease. 4. Right coronary artery: The right coronary artery is a dominant vessel arising from the right coronary sinus of Valsalva. The vessel shows a subtotal occlusion proximally in the order of 99% to 100% at proximal third. It is heavily calcified. Distally, the vessel gives rise to posterolateral vessel and posterior descending branch. Those 2 vessels showed some degree of diffuse disease especially the posterior descending branch. The posterolateral vessel is supplied mostly by collaterals coming from the left system. LEFT VENTRICULOGRAM: Left ventriculogram in the 60 degree [place]AK projection and 30 degree [place] projection reveals hypokinesis of the inferior basal segment of left ventricle, global ejection fraction 45%. [place] contracts normally. No mitral valve regurgitation is noted. OPACIFICATION OF THE RIGHT FEMORAL ARTERY: The right femoral artery is free of any significant obstruction. Angio-Seal device was deployed successfully. FLUOROSCOPY FINDINGS: There is dense calcification of all the coronary arteries especially the LAD, the circumflex proximally, and the [id number] right coronary artery. ADDENDUM: For the procedure, the patient received 2 doses of Versed 1 mg and 2 doses of Demerol 25 mg for sedation. SUMMARY: This study shows: 1. Three vessel coronary artery disease. There is heavily calcified LAD with a 70% stenosis, heavily calcified circumflex with a total occlusion of obtuse marginal branch and a proximal 40% to 50% stenosis, and there is a subtotal occlusion of the right coronary artery that is densely calcified 99% proximally. Possible targets for bypass include the LAD and possibly the terminal right coronary artery. 2. Mildly decreased left ventricular systolic function, ejection fraction 45% with inferior basal hypokinesis. 3. Normal LVEDP. 4. No aortic stenosis. No mitral valve regurgitation. 5. Unremarkable right femoral artery with successful deployment of 6 [place] Angio-Seal device. RECOMMENDATIONS: The patient will be probably consulted with the Cardiovascular team at [facility] for possible either coronary intervention or bypass. We have discussed this with Dr. Antoine, who the golf ball molder of record. cc: Hema Banks MD
[2019-03-03 15:26] VITALS: BP 121/85
--- NOTE | 2019-03-03 22:25 | GASTROENTEROLOGY PROGRESS NOTE ---
DATE: 03/03/2019 SUBJECTIVE: Patient was gone down to the dairy laboratory technician at the time of my rounds. Per nurse report, there were no significant issues this morning before he left for the dairy laboratory technician. As far as GI is concerned, he can follow up with us as an outpatient. Recommend to continue PPI. Further plans will be made according to his progress. GI will sign off for now. Please re-consult if needed while in the hospital and recommend patient follow up with us in the office after discharge. I have discussed this case with Dr. Downey. Dictated by LUCILA Valdes for Petr Downey MD cc: LUCILA Panda MD
[2019-03-04] MEDS ORDERED: LIPITOR PO SCH (09:00)
--- NOTE | 2019-03-04 18:48 | DISCHARGE SUMMARY ---
ADMISSION DATE: 03/01/2019 DISCHARGE DATE: 03/03/2019 DISCHARGE DISPOSITION: [facility] for coronary intervention, either stent or bypass surgery. DISCHARGE DIAGNOSES: 1. Obstructive coronary artery disease with symptoms of chest pressure recently before presentation. 2. Syncope due to orthostatic hypotension. 3. Orthostatic hypotension due to clinical volume depletion and use of antihypertensive medications. 4. Acute kidney injury. 5. Bilateral multifocal pneumonia. 6. Alcohol use disorder. 7. Hepatitis C, untreated. 8. Recreational substance abuse. OTHER DIAGNOSES: 1. History of chronic obstructive pulmonary disease. 2. History of spinal stenosis. 3. History of medical noncompliance. 4. History of rheumatoid arthritis. 5. History of hypertriglyceridemia. CURRENT MEDICATIONS: The patient currently is on fenofibrate 145 mg at nighttime, carvedilol 3.125 mg every 12 hours, lisinopril, Lasix, aspirin. He was also on intravenous antibiotics for pneumonia. VITAL SIGNS: At the time of discharge, he did have temperature of 100.5 degrees, pulse 85, respiratory rate 20, blood pressure 120/85, saturating 96% on room air. PHYSICAL EXAMINATION: Prior to coronary angiography, he was not in acute distress. He did have bibasilar infrascapular region crackles. No murmur, rub, or gallop. S1-S2 was normal. No lower extremity edema. LABORATORY DATA: During hospital admission and discharge, no leukocytosis. WBC of 6000, hemoglobin 14.3, platelet 244,000. On presentation, he did have a BUN of 25 and creatinine of 2.3, which improved to 19 and 1 respectively. At the time of discharge, blood sugar was 106. Troponins were less than 0.010 x 3. His urine toxicology was positive for opiates, amphetamine, methamphetamine, benzodiazepine, and cannabinoids. Microbiology blood culture did not have any growth to date. Sputum culture was in lab. IMAGING: Chest CT on admission had small bilateral patchy noted infiltrate and severe coronary artery atherosclerosis. EKG on presentation had normal sinus rhythm. HOSPITAL COURSE SUMMARY: Mr. Ho is a 53-year-old, -[place] man, who was recently admitted to [facility] between February 26 and February 28, with atypical chest pain. He had underwent exercise stress test which was positive for hypokinesia, so he was advised to have an outpatient followup with microbiology lab manager. However, when he went home, prior to today's presentation, when he was trying to come out of bed and start walking, he had a syncopal episode lasting for a few seconds, so he decided to come back to the emergency room to [facility]. On arrival, he was found to have acute kidney injury and was hypotensive with blood pressure of 94/68. He was started on intravenous fluid resuscitation and hospital team was consulted for further management. He was started on treatment with intravenous antibiotics for suspected pneumonia, intravenous fluids for acute kidney injury. Cardiology team was consulted for abnormal stress test at an outside hospital, and considering his exertional symptoms and severe coronary artery atherosclerosis, he underwent coronary angiography. The coronary angiography report suggested three-vessel coronary artery disease with heavily calcified LAD with 70% stenosis, heavily calcified circumflex, total occlusion of obtuse marginal branch, proximal 40 to 50 percent stenosis, subtotal occlusion of right coronary artery with 99% dense calcification proximally, and ejection fraction of 45%. Considering his severe coronary artery disease, Cardiology team has transferred him to [facility]. Dr. Antoine is the microbiology lab manager. Note, I could not see the patient after coronary angiography and by the time I dictated this discharge summary, patient was already transferred out. cc: Neo Simmons MD
== END 2019-03-03 15:51 | disposition short-term general hospital (02) | DRG 286 ==
LOC: P.ED 13:52 → 2N 19:56 → SUATTDRO 19:56 → 2N 21:09
PROVIDERS: ATTEND Internal Medicine